=== PATIENT | female | born 1960 | race Caucasian/White ===

== ENCOUNTER 2018-10-25 00:15 | Outpatient (CLI) | payer BC, SELFPAY ==
[2018-10-25 11:38] LABS: ALT 31 U/L (12-78); AST 14 U/L (15-37); Albumin 3.6 g/dL (3.4-5.0); Alkaline Phosphatase 101 U/L (46-116); Anion Gap 9.8 mmol/L (3-11); BUN 16 mg/dL (7-18); Bilirubin, Total 0.4 mg/dL (0.2-1.0); CO2 30.2 mmol/L (21.0-32.0); CREATININE 0.71 mg/dL (0.55-1.02); Calcium 9.8 mg/dL (8.5-10.1); Chloride 103 mmol/L (98-107); Cholesterol 216 mg/dL (50-200); Glucose 110 mg/dL (70-100); HDL Cholesterol 50 mg/dL (40-60); LDL CHOLESTEROL 136 mg/dL (<100); Potassium 4.3 mmol/L (3.5-5.1); Sodium 143 mmol/L (136-145); TSH 0.04 uIU/mL (0.358-3.74); Total Protein 7.4 g/dL (6.4-8.2); Triglyceride 119 mg/dL (30-150)
== END 2018-10-25 00:35 ==
PROVIDERS: PCP Family Medicine; Visit Provider Family Medicine
DX: Z00.00 Encounter for general adult medical examination without abnormal findings (principal); E78.5 Hyperlipidemia, unspecified; I10 Essential (primary) hypertension; E89.0 Postprocedural hypothyroidism; R73.03 Prediabetes; Z83.3 Family history of diabetes mellitus
CPT/HCPCS: 36415; 80053; 80061; 83721; 83036; 84443

== ENCOUNTER 2018-12-31 09:05 | Outpatient (CLI) | payer BC, SELFPAY ==
[2018-12-31 10:27] LABS: Abs Immature Grans 0.02 k/cumm (0.0-0.09); Absolute Basophil Count 0.02 k/cumm (0.0-0.2); Absolute Eosinophil Count 0.23 k/cumm (0.0-0.7); Absolute Lymphocyte Count 1.56 k/cumm (1.2-3.4); Absolute Monocyte Count 0.64 k/cumm (0.11-0.7); Basophils % 0.2; Eosinophils % 2.9; HCT 37.1 % (36.0-46.0); HGB 12.5 g/dL (12.0-15.5); Immature Grans % 0.2; Lymphocytes % 19.3; Mean Corp. HGB Concentration 33.7 g/dL (32.0-36.0); Mean Corpuscular Hemoglobin 29.2 pg (27.0-33.0); Mean Corpuscular Volume 86.7 fL (80-95); Mean Platelet Volume 9.5 fL (8.0-11.0); Monocytes % 7.9; Neutrophils % 69.5; Platelet Count 391 x1000/uL (130-400); RBC 4.28 m/cumm (4.00-5.20); RBC Distribution Width 12.4 % (11.7-14.6); White Blood Cell Count 8.07 k/cumm (4.4-10.8)
[2018-12-31 11:04] LABS: ALT 52 U/L (12-78); FREE T4 1.57 ng/dL (0.76-1.46); TSH (W/Ref FT4) 0.03 uIU/mL (0.358-3.74)
== END 2018-12-31 09:25 ==
PROVIDERS: PCP Family Medicine; Visit Provider Family Medicine
DX: C73 Malignant neoplasm of thyroid gland (principal); R59.0 Localized enlarged lymph nodes; E78.5 Hyperlipidemia, unspecified
CPT/HCPCS: 36415; 84439; 84443; 84460; 85025

== ENCOUNTER 2019-10-05 01:41 | Outpatient (CLI) | payer BC, SELFPAY ==
[2019-10-05 15:14] LABS: BUN 15 mg/dL (7-18); CREATININE 0.74 mg/dL (0.55-1.02)
--- NOTE | 2019-10-05 15:42 | DI.CT_ITS ---
EXAM: CT NECK W CLINICAL HISTORY: MASS LT SIDE OF NECK,R22.1. ECHNIQUE: Imaging Protocol: Axial computed tomography images with coronal and sagittal reformatted i mages were created and reviewed CONTRAST MATERIAL: Intravenous: Omnipaque 350 Contrast volume:100 mL contrast route:IV - Oral: No COMPARISON: No exams were available for comparison FINDINGS: Parotids/submandibular: Normal. Lymphadenopathy: There is scattered lymph nodes seen along the level one to level three all measurin g less than 8 mm in short axis diameter which are physiologic in nature. There are 2 enlarged lymph n odes seen in the left neck. They are interposed between the sternocleidomastoid muscle and the jugul ar vein and lie inferior to the level of the parotid gland. The larger measures 2.4 x 1.6 centimeter s. The smaller measures 1.2 x 2.1 centimeters. Carotids/Jugular: Within normal limits. Soft tissues: The floor the mouth is unremarkable. The epiglottis and vocal cords are within normal limits. Tiny calcifications are seen in the tonsillar tissue bilaterally. No mass is appreciated. Incidental note is made of an aberrant right subclavian artery and an azygos lobe. These are normal variants. There are mild degenerative changes seen in the spine. IMPRESSION: Enlarged lymph nodes in the left neck just below the level of the parotid gland. No evidence of a soft tissue mass or enhancing lesion. DATA REPOSITORY: All CT scans at this facility are submitted to the National Radiology Data Registry (NRDR) Dose Index Registry (DIR) with the [employer] (ACR). RADIATION OPTIMIZATION: All CT scans at this facility use at least one of these dose optimization te chniques: automated exposure control; mA and/or kV adjustment per patient size (includes targeted exa ms where dose is matched to clinical indication); or iterative reconstruction.
[2019-10-05] MEDS: Omnipaque 350 MG/ML 100 ML BTL IJ (15:43)
== END 2019-10-05 02:01 ==
PROVIDERS: PCP Family Medicine; Visit Provider Otolaryngology
DX: R22.1 Localized swelling, mass and lump, neck (principal); R59.0 Localized enlarged lymph nodes; Z85.850 Personal history of malignant neoplasm of thyroid
CPT/HCPCS: 70491; 84520; 82565; J3490

== ENCOUNTER 2019-10-16 00:48 | Outpatient (CLI) | payer BC, SELFPAY ==
--- NOTE | 2019-10-16 07:39 | DI.US_ITS ---
EXAM: US NEEDLE LOCAL OTHER WO RAD CLINICAL HISTORY: LYMPHADENOPATHY,R59.1, ULTRASOUND GUIDED FINE NEEDLE ASPIRATION TECHNIQUE: Ultrasound performed using standard protocol. COMPARISON: SOFT TISSUE HEAD NECK from 01/30/2011 FINDINGS: Ultrasound guidance was provided for left cervical mass biopsy performed by Dr. Tolentino. Please see Melany Tolentino's procedure note.
--- NOTE | 2019-10-16 08:00 | PAPNONF_PTH ---
PATIENT: Celina Szymanski LOC: [facility] U#:[id number] AGE/SX: 59/F ROOM: RE10/16/[address]: Ghanshyam Tolentino MD : 1960 BED: DIS: 10/16/2019 SPEC #: [id number] RECD: 10/16/19 13:03 STATUS: HARMAN RELala #: [id number] PRUDENCIO: 10/16/19 08:[address]: Ghanshyam Tolentino DEPT: [facility] Cytology RECD BY: Azalea Tim ENTERED: 10/16/19 13:09 SP TYPE: PAPMARELYF DIEGO DR: Samuel Newton MD Tissues: 1 - BODY FLUID CYTO-FINE NEEDLE [facility] Procedures: BODY FLUID CYTO-FINE NEEDLE [facility] Comments: [id number]
== END 2019-10-16 01:08 ==
PROVIDERS: PCP Family Medicine; Visit Provider Otolaryngology
DX: C77.0 Secondary and unspecified malignant neoplasm of lymph nodes of head, face and neck (principal); Z85.850 Personal history of malignant neoplasm of thyroid; R59.0 Localized enlarged lymph nodes; Z87.891 Personal history of nicotine dependence
CPT/HCPCS: 10005; 76942; 88104

== ENCOUNTER 2020-01-11 02:59 | Outpatient (CLI) | payer BC, SELFPAY ==
[2020-01-13 09:22] LABS: Thyroglobulin Antibody 18 U/mL (<=60)
== END 2020-01-11 03:19 ==
PROVIDERS: PCP Family Medicine; Visit Provider Surgery
DX: C73 Malignant neoplasm of thyroid gland (principal)
CPT/HCPCS: 36415; 86800

== ENCOUNTER 2020-02-17 02:27 | Outpatient (CLI) | payer BC, SELFPAY ==
[2020-02-17 10:21] LABS: Abs Immature Grans 0.01 k/cumm (0.0-0.09); Absolute Basophil Count 0.03 k/cumm (0.0-0.2); Absolute Eosinophil Count 0.25 k/cumm (0.0-0.7); Absolute Lymphocyte Count 1.39 k/cumm (1.2-3.4); Absolute Neutrophil Count 4.57 k/cumm (1.2-6.7); Basophils % 0.4; Eosinophils % 3.7; HCT 38.4 % (36.0-46.0); HGB 12.9 g/dL (12.0-15.5); Immature Grans % 0.1 %; Lymphocytes % 20.6; Mean Corp. HGB Concentration 33.6 g/dL (32.0-36.0); Mean Corpuscular Volume 86.3 fL (80-95); Mean Platelet Volume 9.4 fL (8.0-11.0); Monocytes % 7.4; Neutrophils % 67.8; Platelet Count 417 x1000/uL (130-400); RBC 4.45 m/cumm (4.00-5.20); RBC Distribution Width 12.8 % (11.7-14.6); White Blood Cell Count 6.75 k/cumm (4.4-10.8)
[2020-02-17 11:11] LABS: TSH 0.06 uIU/mL (0.36-3.74)
== END 2020-02-17 02:47 ==
PROVIDERS: PCP Family Medicine; Visit Provider Preventive Medicine Undersea and Hyperbaric Medicine
DX: C73 Malignant neoplasm of thyroid gland (principal)
CPT/HCPCS: 36415; 84443; 85025

== ENCOUNTER 2020-04-26 01:36 | Outpatient (CLI) | payer BC, SELFPAY ==
[2020-04-26 09:29] LABS: TSH 0.03 uIU/mL (0.36-3.74)
== END 2020-04-26 01:56 ==
PROVIDERS: PCP Family Medicine; Visit Provider Preventive Medicine Undersea and Hyperbaric Medicine
DX: C73 Malignant neoplasm of thyroid gland (principal)
CPT/HCPCS: 36415; 84443; 86800

== ENCOUNTER 2020-06-03 03:51 | Outpatient (CLI) | payer BC, SELFPAY ==
[2020-06-04 14:33] LABS: Thyroglobulin Antibody <1.8 IU/mL (<1.8)
== END 2020-06-03 04:11 ==
PROVIDERS: PCP Family Medicine; Visit Provider Preventive Medicine Undersea and Hyperbaric Medicine
DX: C73 Malignant neoplasm of thyroid gland (principal)
CPT/HCPCS: 36415; 84432; 86800

== ENCOUNTER 2020-11-24 04:06 | Outpatient (CLI) | payer BC, SELFPAY ==
[2020-11-24 08:12] LABS: TSH 0.15 uIU/mL (0.36-3.74)
[2020-11-25 14:21] LABS: Thyroglobulin Antibody <1.8 IU/mL (<1.8); Thyroglobulin Tumor Marker 2.5 ng/mL
== END 2020-11-24 04:07 | disposition home or self-care (01) ==
LOC: LBO 04:06
PROVIDERS: PCP Family Medicine; Visit Provider Preventive Medicine Undersea and Hyperbaric Medicine
DX: C73 Malignant neoplasm of thyroid gland (principal)
CPT/HCPCS: 36415; 84432; 84443; 86800

== ENCOUNTER 2020-12-26 09:28 | Outpatient (CLI) | payer BC, SELFPAY ==
[2020-12-27 16:16] LABS: COVID-19 RT-PCR UVMMC Result Negative (Negative)
== END 2020-12-26 09:29 | disposition home or self-care (01) ==
PROVIDERS: PCP Family Medicine; Visit Provider Family Medicine
DX: Z20.822 Contact with and (suspected) exposure to COVID-19 (principal)
CPT/HCPCS: U0003

== ENCOUNTER 2021-04-06 03:38 | Outpatient (CLI) | payer BC, SELFPAY ==
[2021-04-06 09:34] LABS: TSH 0.18 uIU/mL (0.36-3.74)
[2021-04-07 16:46] LABS: Thyroglobulin Antibody <1.8 IU/mL (<1.8); Thyroglobulin Tumor Marker 2.8 ng/mL
== END 2021-04-06 03:39 | disposition home or self-care (01) ==
PROVIDERS: PCP Family Medicine; Visit Provider Preventive Medicine Undersea and Hyperbaric Medicine
DX: C73 Malignant neoplasm of thyroid gland (principal)
CPT/HCPCS: 36415; 84432; 84443; 86800

== ENCOUNTER 2021-12-13 12:54 | Outpatient (RCR) | payer BC, SELFPAY ==
[2021-12-13 13:45] LABS: TSH 0.01 uIU/mL (0.36-3.74)
[2021-12-13 23:08] LABS: Thyroglobulin Antibody <15 U/mL (<=60)
== END 2021-12-21 23:59 | disposition home or self-care (01) ==
LOC: INF 12:54
PROVIDERS: PCP Family Medicine; Visit Provider Preventive Medicine Undersea and Hyperbaric Medicine
DX: C73 Malignant neoplasm of thyroid gland (principal)
CPT/HCPCS: 84443; 86800

== ENCOUNTER 2022-01-24 07:10 | Outpatient (CLI) | payer BC, SELFPAY ==
[2022-01-24 08:23] LABS: TSH 0.01 uIU/mL (0.36-3.74)
[2022-01-25 17:10] LABS: Thyroglobulin Antibody <1.8 IU/mL (<1.8); Thyroglobulin Tumor Marker 3.1 ng/mL
== END 2022-01-24 07:11 | disposition home or self-care (01) ==
PROVIDERS: PCP Family Medicine; Visit Provider Preventive Medicine Undersea and Hyperbaric Medicine
DX: C73 Malignant neoplasm of thyroid gland (principal)
CPT/HCPCS: 36415; 84432; 84443; 86800

== ENCOUNTER 2023-01-30 02:21 | Outpatient (CLI) | payer OTHER, SELFPAY ==
[2023-01-30 08:05] LABS: Hemoglobin A1C 5.8 % (<5.7)
[2023-01-30 08:22] LABS: ALT 27 U/L (14-59); AST 11 U/L (15-37); Alkaline Phosphatase 103 U/L (46-116); Anion Gap 7.5 mmol/L (3-11); BUN 20 mg/dL (7-18); Bilirubin, Total 0.3 mg/dL (0.2-1.0); CO2 29.5 mmol/L (21.0-32.0); CREATININE 0.8 mg/dL (0.55-1.02); Calcium 9.5 mg/dL (8.5-10.1); Calculated LDL 174 mg/dL (<100); Chloride 103 mmol/L (98-107); Cholesterol 239 mg/dL (<200); Estimated GFR 82.74 (mL/min/1.73m2); Glucose 135 mg/dL (74-106); HDL Cholesterol 40 mg/dL (40-60); Sodium 140 mmol/L (136-145); Total Protein 7.6 g/dL (6.4-8.2); Triglyceride 127 mg/dL (<150)
== END 2023-01-30 02:22 | disposition home or self-care (01) ==
LOC: LBO 02:21
PROVIDERS: PCP Family Medicine; Visit Provider Family Medicine
DX: Z00.00 Encounter for general adult medical examination without abnormal findings (principal); I10 Essential (primary) hypertension; E78.5 Hyperlipidemia, unspecified; R73.03 Prediabetes
CPT/HCPCS: 36415; 80053; 80061; 83036

== ENCOUNTER 2023-03-18 09:39 | Outpatient (CLI) | payer OTHER, SELFPAY ==
--- NOTE | 2023-03-18 09:00 | DI.RAD_ITS ---
Exam(s) XR KNEE RT 3V AP,LAT,SHANE EXAM: XR KNEE RT 3V AP,LAT,SHANE CLINICAL HISTORY: right knee pain. TECHNIQUE: 2D digital imaging was performed of the right knee. Three views obtained. AP, lateral an d PA tunnel views were obtained. COMPARISON: No exams were available for comparison FINDINGS: BONES: No acute fracture is present. No bony destructive lesion is seen. Enthesophytes are seen at th e anterior patella. JOINTS: The knee is normally aligned. No joint effusion is seen. SOFT TISSUE: Atherosclerosis. IMPRESSION: No acute abnormality. DATA REPOSITORY: RADIATION DOSE DELIVERED:
== END 2023-03-18 09:40 | disposition home or self-care (01) ==
LOC: DIORS 09:39
PROVIDERS: PCP Family Medicine; Referring Provider Family Medicine; Visit Provider Student in an Organized Health Care Education/Training Program
DX: M25.561 Pain in right knee (principal)
CPT/HCPCS: 73562

== ENCOUNTER → 2023-06-07 00:53 | Outpatient (CLI) | payer OTHER, SELFPAY ==
[2023-06-07 15:09] LABS: Abs Immature Grans 0.02 10^3/uL (0.0-0.06); Absolute Basophil Count 0.07 10^3/uL (0.0-0.2); Absolute Eosinophil Count 0.33 10^3/uL (0.0-0.7); Absolute Lymphocyte Count 1.49 10^3/uL (1.2-3.4); Absolute Monocyte Count 0.49 10^3/uL (0.1-0.8); Absolute Neutrophil Count 4.66 10^3/uL (1.2-6.7); Eosinophils % 4.7; HCT 39.7 % (36.0-46.0); HGB 13.1 g/dL (11.2-15.7); Immature Grans % 0.3; Lymphocytes % 21.1; MCH 27.8 pg (27.0-33.0); MCV 84 fL (80-95); MPV 8.8 fL (8.0-11.0); Monocytes % 6.9; Platelet Count 411 10^3/uL (130-400); RBC 4.72 10^6/uL (3.93-5.22); RDW 12.9 % (11.7-14.6); RDW-SD 39.5 fL; WBC 7.06 10^3/uL (4.4-10.8)
[2023-06-07 15:10] LABS: ESR 35 mm/hr (0-30)
[2023-06-07 15:20] LABS: CREATININE 0.7 mg/dL (0.55-1.02); Estimated GFR 97.12 (mL/min/1.73m2)
--- NOTE | 2023-06-07 16:25 | DI.CT_ITS ---
Exam(s) CT BRAIN NECK CTA EXAM: CT BRAIN NECK CTA CLINICAL HISTORY: CAMPOS/lt neck pain, nodules, hx thyroid CA x3,m54.2. TECHNIQUE: Imaging Protocol: Axial CT angiography was performed with multi-slice acquisition and mu lti-planar and 3D reconstructions. CONTRAST MATERIAL: Intravenous: Omnipaque 350 Contrast volume:structured data in ml COMPARISON: CT CT NECK W from 10/05/2019 US US NEEDLE LOCAL OTHER WO RAD from 10/16/2019 FINDINGS: CT Head W/O and W contrast: Ventricles and Extra axial spaces: Normal in size and morphology for the patient's age. Hemorrhage: None. Cerebral parenchyma: Normal. Midline shift: None. Brainstem/Cerebellum: Normal. Calvarium: Normal. Visualized Paranasal sinuses/Mastoids: Clear. Soft Tissues: Unremarkable. Enhancement: Normal. CTA Brain W: Internal Carotid Arteries: Petrous: Normal. Cavernous: Normal. Cerebral: Normal. Middle Cerebral Arteries: Right: No aneurysm, occlusion or significant stenosis. Left: No aneurysm, occlusion or significant stenosis. Anterior Cerebral Arteries: Right: No aneurysm, occlusion or significant stenosis. Left: No aneurysm, occlusion or significant stenosis. Posterior cerebral Arteries: Right: No aneurysm, occlusion or significant stenosis. Left: No aneurysm, occlusion or significant stenosis. Vertebral Arteries: Right: No aneurysm, occlusion or significant stenosis. Left: No aneurysm, occlusion or significant stenosis. Basilar Artery: No aneurysm, occlusion or significant stenosis. CTA Neck W: Common Carotid: Right: No dissection, occlusion or significant stenosis. Left: No dissection, occlusion or significant stenosis. External Carotid: Right: No dissection, occlusion or significant stenosis. Left: No dissection, occlusion or significant stenosis. Internal Carotid: Right: No dissection, occlusion or significant stenosis. Left: No dissection, occlusion or significant stenosis. Vertebral Artery: Right: No dissection, occlusion or significant stenosis. Left: No dissection, occlusion or significant stenosis. Lung Apices: Normal. Azygos lobe, normal variant. Aberrant right subclavian vein, normal variant. A scending aorta measures 4.4 cm AP. Atherosclerotic changes. Bones: Lucency seen in the C5 vertebral body. Not present on prior. Degenerative changes at C1-2 an d C5-6 and C6-7. Facet degenerative changes throughout. Soft Tissues: Tonsillar calcifications again noted. Thyroid appears to have been resected. Two adjacent lymph nodes measuring 15 millimeters located behind the right submandibular gland. Othe r smaller nodes seen inferiorly. Area of ill-defined soft tissue fullness lateral to the left tonsil, between the tonsil and vessels. It measures approximately 1.8 x 2.4 cm by 2.8 cm this may represent a mass arising from the left ton erum. It shows mild minimal enhancement. Evaluation of enhancement is limited since the exam was per formed during the arterial phase and venous structures are not yet opacified. IMPRESSION: 1. Normal CTA examination of the [place]. 2. Unremarkable CT Head. 3. Neck CT: Dilated ascending aorta to 4.4 cm. No significant vascular abnormality. Abnormal hearing lucency in the C5 vertebral body not present on prior exam. 2.8 cm mass seen within or adjacent to the left tonsil. Mildly enlarged large right anterior chain lymph nodes. Unexpected findings RADIATION DOSE DELIVERED: 2,333.22mGy.cm Total DLP DATA REPOSITORY: All CT scans at this facility are submitted to the National Radiology Data Registry (NRDR) Dose Index Registry (DIR) with the [employer] (ACR). RADIATION OPTIMIZATION: All CT scans at this facility use at least one of these dose optimization te chniques: automated exposure control; mA and/or kV adjustment per patient size (includes targeted exa ms where dose is matched to clinical indication); or iterative reconstruction.
[2023-06-07] MEDS: Normal Saline - Diluent 50 ML VIAL IJ (16:27)
[2023-06-07] MEDS: Omnipaque 350 MG/ML 100 ML BTL 85 ML IJ (16:28)
== END ==
PROVIDERS: PCP Family Medicine; Visit Provider Physician Assistant
DX: M54.2 Cervicalgia (principal); I10 Essential (primary) hypertension
CPT/HCPCS: 70496; 70498; 85652; 82565; 85025; J3490

== ENCOUNTER 2023-08-09 03:20 | Outpatient (CLI) | payer OTHER, SELFPAY ==
[2023-08-09 17:33] LABS: ALT 29 U/L (14-59); AST 14 U/L (15-37); Albumin 3.9 g/dL (3.4-5.0); Alkaline Phosphatase 97 U/L (46-116); Anion Gap 10.5 mmol/L (3-11); BUN 22 mg/dL (7-18); Bilirubin, Total 0.4 mg/dL (0.2-1.0); CO2 25.5 mmol/L (21.0-32.0); CREATININE 0.7 mg/dL (0.55-1.02); Calcium 10.5 mg/dL (8.5-10.1); Chloride 102 mmol/L (98-107); Estimated GFR 97.12 (mL/min/1.73m2); Glucose 118 mg/dL (74-106); Potassium 3.5 mmol/L (3.5-5.1); Sodium 138 mmol/L (136-145); TSH 0.44 uIU/mL (0.36-3.74)
[2023-08-12 18:45] LABS: Thyroglobulin Antibody <1.8 IU/mL (<1.8); Thyroglobulin Tumor Marker 18 ng/mL
== END 2023-08-09 03:21 | disposition home or self-care (01) ==
LOC: LBO 03:25
PROVIDERS: Family Medicine; Visit Provider Student in an Organized Health Care Education/Training Program
DX: C73 Malignant neoplasm of thyroid gland
CPT/HCPCS: 36415; 80053; 84432; 84443; 86800

== ENCOUNTER → 2023-10-23 00:34 | Outpatient (CLI) | payer OTHER, SELFPAY ==
[2023-10-23 14:17] LABS: Abs Immature Grans 0.02 10^3/uL (0.0-0.06); Absolute Basophil Count 0.07 10^3/uL (0.0-0.2); Absolute Eosinophil Count 0.69 10^3/uL (0.0-0.7); Absolute Lymphocyte Count 1.33 10^3/uL (1.2-3.4); Absolute Neutrophil Count 4.47 10^3/uL (1.2-6.7); Eosinophils % 9.7; HCT 39.4 % (36.0-46.0); HGB 13.4 g/dL (11.2-15.7); Immature Grans % 0.3; Lymphocytes % 18.8; MCH 28.3 pg (27.0-33.0); MCV 83 fL (80-95); MPV 9.2 fL (8.0-11.0); Monocytes % 7.1; Neutrophils % 63.1; Platelet Count 341 10^3/uL (130-400); RBC 4.74 10^6/uL (3.93-5.22); RDW 12.5 % (11.7-14.6); RDW-SD 38.2 fL; WBC 7.08 10^3/uL (4.4-10.8)
[2023-10-23 14:39] LABS: ALT 24 U/L (14-59); AST 10 U/L (15-37); Albumin 3.9 g/dL (3.4-5.0); Alkaline Phosphatase 90 U/L (46-116); Anion Gap 8.2 mmol/L (3-11); BUN 22 mg/dL (7-18); Bilirubin, Total 0.3 mg/dL (0.2-1.0); CO2 27.8 mmol/L (21.0-32.0); CREATININE 0.8 mg/dL (0.55-1.02); Calcium 9.6 mg/dL (8.5-10.1); Chloride 103 mmol/L (98-107); Estimated GFR 82.74 (mL/min/1.73m2); FREE T4 1.73 ng/dL (0.76-1.46); Glucose 116 mg/dL (74-106); Magnesium 2.1 mg/dL (1.8-2.4); Sodium 139 mmol/L (136-145); TSH 0.07 uIU/mL (0.36-3.74); Total Protein 7.7 g/dL (6.4-8.2)
[2023-10-24 21:34] LABS: Thyroglobulin Antibody <1.8 IU/mL (<1.8); Thyroglobulin Tumor Marker 5.1 ng/mL
== END ==
PROVIDERS: PCP Family Medicine; Visit Provider Surgery
DX: C79.9 Secondary malignant neoplasm of unspecified site (principal); C73 Malignant neoplasm of thyroid gland
CPT/HCPCS: 80053; 83735; 84432; 84439; 84443; 85025; 86800

== ENCOUNTER 2023-11-16 10:32 | Emergency (ER) | payer OTHER, SELFPAY ==
[2023-11-16] VITALS (25 sets, daily range): BP systolic 149–207; BP diastolic 84–96; PULSE 84–108; RESP 10–23; TEMP 36.8; O2SAT 88–97
--- NOTE | 2023-11-16 10:45 | DI.RAD_ITS ---
Exam(s) XR CHEST 2V PA LATERAL EXAM: XR CHEST 2V PA LATERAL CLINICAL HISTORY: cough shortness of breath. TECHNIQUE: 2D digital imaging was performed. COMPARISON: No exams were available for comparison FINDINGS: 2 views: Heart size is normal. The mediastinum is not widened. Lungs are clear. No infiltrates nor pleural effusions. IMPRESSION: No acute pulmonary findings. DATA REPOSITORY: RADIATION DOSE DELIVERED:
--- NOTE | 2023-11-16 10:47 | ED.GENADUL_ITS ---
Discharge Plan Disposition Patient Disposition: Home Discharge Details Clinical Impression: Nausea & vomiting Primary Care Provider: Apple Hameed ED Provider: Brennan Prado Home Meds and New Rx's Prescriptions: New ondansetron 4 mg tablet,disintegrating 4 mg PO BID 5 Days Qty: 10 0RF Continued levothyroxine 150 mcg tablet 150 mcg PO DAILY Patient Comments: TAKE 1 TABLET BY MOUTH ONCE DAILY IN ADDITION TO 200MCG FOR A TOTAL OF 350MCG Rx Instructions: total daily dose 350mcg levothyroxine 200 mcg tablet 200 mcg PO DAILY Rx Instructions: total daily dose of 350mcg losartan 50 mg tablet 50 mg PO DAILY Qty: 90 1RF diazepam 5 mg tablet 5 mg PO ONCE PRN (Reason: sleep) Qty: 1 0RF Discharge Instructions Instructions: Acute Nausea and Vomiting (ED) Additional Instructions: You were seen in the emergency department for your nausea and vomiting. Your blood work showed that you are mildly dehydrated. You are receiving a prescription for nausea medicines which you should take as directed. Please return to the emergency department as we discussed if you develop any fevers any abdominal pain or cannot eat or drink as result of nausea or vomiting. Otherwise please follow-up with your primary care provider next week. HPI General Date/Time Provider Initiated Documentation: 11/16/23 10:47 . HPI Narrative: MDM This is an overall very well-appearing normothermic and not tachycardic but dehydrated appearing 63-year-old female with 2 days of nausea vomiting in the setting of radiation in the setting of thyroid cancer for which she will receive labs and IV fluids. Patient reports vomiting up her antihypertensive medications last night. She is on losartan 50 mg daily. No pain out of proportion to suggest necrotizing soft tissue infection. Patient has a soft nontender abdomen so I am not concerned for acute intra-abdominal infection. Specifically no right lower quadrant tenderness to suggest appendicitis. No left lower quadrant tenderness nor diarrhea to suggest diverticulitis. Patient has not been on chemotherapy and has not had any fevers so I am not concerned for neutropenic fever. Patient has not had any surgeries to her abdomen and had a bowel movement this morning so not concern for small bowel obstruction. No chest pain to suggest esophageal rupture. In the absence of chest pain my suspicion was low for ACS however based on patient's sex. 11:30 PM Basic metabolic panel showing mild anion gap acidosis. No KIMBERLY. Mild hyperglycemia but normal bicarbonate??not consistent with DKA. Mildly elevated calcium at 10.2 which will improve with fluids. Normal reassuring magnesium. CBC with no anemia nor leukocytosis. Mild thrombocytosis slightly more pronounced compared to prior. Negative initial troponin. Given time since symptoms began several days ago no indication for repeat troponin. 1:45 PM Patient tolerated p.o. challenge well in the ED. We discussed return to the ED for any fevers abdominal pain or any recurrent inability to tolerate p.o. I sent her with a short course of ondansetron. I advised PCP follow-up as needed. Chronic conditions affecting the care of the patient: N/A History obtained from an outside historian: N/A External record review: [facility] [place] Diagnostic interpretations performed by me: Per my independent interpretation chest x-ray shows: No acute cardiopulmonary process Per my independent interpretation EKG shows: Narrow complex normal sinus rhythm at a rate of 92.Intervals within normal limits. Left axis. No signs of LVH. T wave flattening in aVL. No prior for comparison. No acute injury pattern. ]Medications: Ondansetron Social determinants of health affecting disposition: N/A Management discussed with: N/A Treatment/interventions considered: Hospitalization but deferred given improved symptoms Response to therapies provided: Improved symptoms in the ED HPI This is a 63-year-old female with multiple recurrent papillary thyroid cancer status post resection and currently undergoing radiation treatment at [facility]. She arrives with her via private vehicle. She reportedly has been nauseous and vomiting for the past 2 days. She has not been able to keep anything down. She denies any abdominal pain or chest pain. She has never had any surgeries to her abdomen. Her last bowel movement was this morning. She has had no rash to her abdomen. She denies fevers chills chest pain shortness of breath. No acute tobacco, ethanol, and illicits. No recent falls. Exam General: Well-appearing in no acute distress speaking in complete sentences. Head: Normocephalic, atraumatic. Eye: Extraocular eye movements intact. No conjunctival injection. No scleral icterus. Ear, nose, mouth, throat: Dry mucous membranes. Normal voice, handling secretions normally. Neck: Trachea midline. Cardiovascular: Well-perfused distal extremities. Regular rate and rhythm Respiratory: Nonlabored respiration. Bilateral clear lungs Gastrointestinal: Nondistended abdomen. Soft nontender. No rebound. No guarding. Musculoskeletal: No edema. Moving all 4 extremities spontaneously. Skin: Normal for age and race, grossly normal temperature and turgor. No acute rash. Neurologic: Alert and appropriate, no apparent acute deficits. Psychiatric: Mood and manner are appropriate. Grooming and personal hygiene are appropriate. Related Data Home Medications Medication Instructions Recorded Confirmed levothyroxine 150 mcg tablet 150 mcg PO DAILY 08/03/22 11/16/23 levothyroxine 200 mcg tablet 200 mcg PO DAILY 08/03/22 11/16/23 losartan 50 mg tablet 50 mg PO DAILY #90 tabs 08/16/23 11/16/23 diazepam 5 mg tablet 5 mg PO ONCE PRN sleep #1 tab 10/10/23 11/16/23 ondansetron 4 mg disintegrating 4 mg PO BID 5 days #10 tabs 11/16/23 tablet Previous Rx's Medication Instructions Recorded losartan 50 mg tablet 50 mg PO DAILY #90 tabs 08/16/23 diazepam 5 mg tablet 5 mg PO ONCE PRN sleep #1 tab 10/10/23 ondansetron 4 mg disintegrating 4 mg PO BID 5 days #10 tabs 11/16/23 tablet Allergies Allergy/AdvReac Type Severity Reaction Status Date / Time No Known Allergies Allergy Verified 09/05/23 09:19 General Stated Complaint: Nausea/Vomit/Diar RAY: 3 Course Vital Signs Vital signs: Vital Signs Temperature 36.8 C 11/16/23 10:40 Pulse 97 H 11/16/23 10:40 Respiratory Rate 16 11/16/23 10:40 Blood Pressure 149/90 H 11/16/23 10:40 Pulse Oximetry 93 11/16/23 10:40 Temperature 36.8 C 11/16/23 10:40 Temperature Source Tympanic 11/16/23 10:40 Pulse 97 H 11/16/23 10:40 Respiratory Rate 16 11/16/23 10:40 Blood Pressure 149/90 H 11/16/23 10:40 Blood Pressure Position Sitting 11/16/23 10:40 Pulse Oximetry 93 11/16/23 10:40 Oxygen Delivery Method Room Air 11/16/23 10:40 Oxygen Flow Rate 0 11/16/23 10:40 Medical Decision Making Quality:SDOH Health Related Social Needs: No Data to Display PFSH All Active Problems (Updated 11/16/23 @ 13:45 by Brennan Prado MD) Nausea & vomiting (Acute) Hypercalcemia (Acute) Lymphadenopathy of left cervical region (Acute) Internal derangement of right knee (Acute) Hyperlipidemia (Chronic) Hypertension (Chronic) Hypothyroidism associated with surgical procedure (Acute 03/28/18) Obesity (Chronic) Prediabetes (Chronic 03/28/18) History of malignant neoplasm of thyroid (Acute 05/30/16) Followed by endocrinology 04/05; papillary thyroid cancer. Hypoalbuminemia (Acute) Medical History History of tobacco use History of thyroid cancer followed by endocrinology 04/05 Family history of diabetes mellitus (03/28/18) Family history of coronary artery disease (04/14/18) sister with MT at age 48 and mother with CAD at age 65 Surgical History H/O neck dissection S/P total thyroidectomy (~1994) Family History Mother , AGE 73 Diabetes Depression Heart disease Stroke Sister Substance abuse Diabetes Essential hypertension Depression Heart disease Brother Diabetes Essential hypertension Depression Sister Substance abuse Diabetes Depression Asthma Alcohol abuse Brother Substance abuse Diabetes Depression Colon cancer Heart disease CABG age 66 Maternal Grandmother Diabetes Stroke 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[employer] [place] Pets and animals: Yes Pets and animals: cat(s) Sexually active: Yes Do you think of yourself as: lesbian/ontiveros/homosexual Current gender identity: female What is your relationship status?: Panel score (0-1 are the most socially isolated patients): 1 Frequency: does not exercise Alena/Synagogue: No preference Special alena needs: No Seatbelt use: always Working smoke detector in home: Yes Carbon monox detector in home: Yes Firearms in home: Yes Firearms unloaded and locked: Yes Do you feel safe at home: Yes Victim of physical abuse: No Victim of emotional abuse: No Victim of sexual abuse: No Additional Social history: Strongly enjoys her work, grandchildren.
--- NOTE | 2023-11-16 11:00 | RT.EKG_ITS ---
APPROVED REPORT Exam: Resting ECG Reason for Exam: Nausea vomiting Patient Location: E HR:92 bpm ECG Measurements Heart Rate 92 AXIS NE 186 P -12 QRSd 98 QRS -30 QT 398 T 44 QTc 494 Conclusion Sinus rhythm...normal P axis, V-rate 60- 99 Left axis deviation...QRS axis (-30,-90) Narrow complex normal sinus rhythm at a rate of 92.Intervals within normal limits. Left axis. No si gns of LVH. T wave flattening in aVL. No prior for comparison. No acute injury pattern.
[2023-11-16 11:10] LABS: Abs Immature Grans 0.03 10^3/uL (0.0-0.06); Absolute Basophil Count 0.05 10^3/uL (0.0-0.2); Absolute Eosinophil Count 0.07 10^3/uL (0.0-0.7); Absolute Lymphocyte Count 0.74 10^3/uL (1.2-3.4); Absolute Monocyte Count 0.37 10^3/uL (0.1-0.8); Absolute Neutrophil Count 7.58 10^3/uL (1.2-6.7); Basophils % 0.6; Eosinophils % 0.8; HCT 42.4 % (36.0-46.0); HGB 14.3 g/dL (11.2-15.7); Immature Grans % 0.3; Lymphocytes % 8.4; MCH 27.7 pg (27.0-33.0); MCHC 33.7 % (32.0-36.0); MCV 82 fL (80-95); MPV 9.1 fL (8.0-11.0); Monocytes % 4.2; Neutrophils % 85.7; Platelet Count 438 10^3/uL (130-400); RBC 5.16 10^6/uL (3.93-5.22); RDW-SD 38.7 fL; WBC 8.84 10^3/uL (4.4-10.8)
[2023-11-16] MEDS: Ondansetron 4 MG/2 ML VIAL IVP (11:10)
[2023-11-16] MEDS: Normal Saline 1,000 ML 1000 ML IV (11:13)
[2023-11-16 11:28] LABS: Anion Gap 12.2 mmol/L (3-11); BUN 13 mg/dL (7-18); CO2 27.8 mmol/L (21.0-32.0); CREATININE 0.8 mg/dL (0.55-1.02); Calcium 10.2 mg/dL (8.5-10.1); Chloride 97 mmol/L (98-107); Estimated GFR 82.74 (mL/min/1.73m2); Glucose 168 mg/dL (74-106); Magnesium 1.9 mg/dL (1.8-2.4); Potassium 3.5 mmol/L (3.5-5.1); Sodium 137 mmol/L (136-145); Troponin I < 50 ng/L (< or =60)
--- NOTE | 2023-11-16 11:43 | DI.VRAD_ITS ---
PROCEDURE INFORMATION: Exam: XR Chest Exam date and time: 11/16/2023 11:23 AM Age: 63 years old Clinical indication: Cough and shortness of breath TECHNIQUE: Imaging protocol: Radiologic exam of the chest. Views: 2 views. COMPARISON: CT BRAIN NECK CTA 06/07/2023 3:56 PM FINDINGS: Tubes, catheters and devices: There are electrocardiographic leads on the thorax. Lungs: Unremarkable. No consolidation. Pleural spaces: Unremarkable. No pleural effusion. No pneumothorax. Heart/Mediastinum: The heart and aorta are normal in size and configuration. Bones/joints: Unremarkable. IMPRESSION: No acute cardiopulmonary disease. Dictated and Authenticated by: Nickolas Arboleda MD. Ordering:JAMES Tristan MD
[2023-11-16] MEDS: Metoclopramide 10 MG/2 ML VIAL IVP (12:14)
[2023-11-16] MEDS: Droperidol 5 MG/2 ML VIAL 1.25 MG IVP (13:00)
[2023-11-16] MEDS: Ondansetron O.D.T. 4 MG TABEF, 3 TABS/BTL PO (13:59)
== END 2023-11-16 16:26 | disposition home or self-care (01) ==
PROVIDERS: Emergency Provider Emergency Medicine; PCP Family Medicine
DX: R11.2 Nausea with vomiting, unspecified (principal); R73.9 Hyperglycemia, unspecified; D75.839 Thrombocytosis, unspecified; C73 Malignant neoplasm of thyroid gland
CPT/HCPCS: 80048; 93005; 96361; 96365; 96375; 99284; 71046; 83735; 84484; 85025; 93010; J1790; J2405; J2765

== ENCOUNTER 2023-11-29 14:39 | Emergency (ER) | payer OTHER, SELFPAY ==
[2023-11-29] VITALS (39 sets, daily range): BP systolic 76–154; BP diastolic 33–103; PULSE 77–140; RESP 16–20; TEMP 36.3–36.6; O2SAT 93–100
--- NOTE | 2023-11-29 14:45 | RT.EKG_ITS ---
APPROVED REPORT Exam: Resting ECG Reason for Exam: dizzy, tachy Patient Location: E HR:105 bpm ECG Measurements Heart Rate 105 AXIS NV 156 P 54 QRSd 91 QRS -24 QT 345 T 69 QTc 456 Conclusion Sinus tachycardia...rate> 99 Physician: no stemi
--- NOTE | 2023-11-29 14:58 | W.ED.GENAD ---
Discharge Plan Disposition Patient Disposition: Home Condition: Stable Discharge Details Clinical Impression: GI bleed, Anemia Primary Care Provider: Apple Hameed ED Provider: Kaelyn Rhodes Home Meds and New Rx's Prescriptions: No Action levothyroxine 150 mcg tablet 150 mcg PO DAILY Patient Comments: TAKE 1 TABLET BY MOUTH ONCE DAILY IN ADDITION TO 200MCG FOR A TOTAL OF 350MCG Rx Instructions: total daily dose 350mcg levothyroxine 200 mcg tablet 200 mcg PO DAILY Rx Instructions: total daily dose of 350mcg losartan 50 mg tablet 50 mg PO DAILY Qty: 90 1RF hydromorphone 1 mg/mL liquid 1 mg PO Q4H PRN Discharge Instructions Instructions: Anemia (ED) Additional Instructions: Please stop taking the aspirin. Follwo up with general surgery to discuss a colonoscopy. Please return to the ER for any recurrence of bleeding, dark stools, abdominal pain, or dizziness or lightheadedness. Follow up with primary care provider in 3-5 days. Return to ED sooner if any worsening or concerns. Increase oral fluids. He did receive 1 unit of red blood cells today. You may continue to take your previously prescribed pain medication however do not take aspirin. Referrals: Apple Hameed MD [Primary Care Provider] - 3 days HPI <Kaelyn Rhodes NP - Last Filed: 11/29/23 20:21> General Date/Time Provider Initiated Documentation: 11/29/23 14:45. Related Data Home Medications Medication Instructions Recorded Confirmed levothyroxine 150 mcg tablet 150 mcg PO DAILY 08/03/22 11/29/23 levothyroxine 200 mcg tablet 200 mcg PO DAILY 08/03/22 11/29/23 losartan 50 mg tablet 50 mg PO DAILY #90 tabs 08/16/23 11/29/23 hydromorphone 1 mg/mL oral liquid 1 mg PO Q4H PRN 11/29/23 11/29/23 Previous Rx's Medication Instructions Recorded losartan 50 mg tablet 50 mg PO DAILY #90 tabs 08/16/23 Allergies Allergy/AdvReac Type Severity Reaction Status Date / Time No Known Allergies Allergy Verified 11/29/23 14:52 <ARELIS Shaikh - Last Filed: 11/29/23 16:49> General Limitations to Documentation: no limitations. Information obtained by: patient, family (), RN/MD (contacted by [facility]) and RN notes reviewed. History of Present Illness 63 year old F presents to the emergency department with the chief complaint of thick, sludgy, dark stool starting today, lightheaded, hypotensive, described as moderate, Quality is described as other (lightheaded), Patient started experiencing this day(s) (started feeling unwell last night) and it has been constant. No relieving factors improve symptom(s), No exacerbating factors reported . Patient notes loss of appetite, malaise and weakness (feels generally weak and fatigued); denies confusion, chest pain, diaphoresis, fever/chills, headaches, nausea/vomiting (has had N/V associated with radiation, none at this time) and syncope. Patient did receive the following treatments prior to arrival, none General Stated Complaint: GI Bleed RAY: 3 Review of Systems <ARELIS Shaikh - Last Filed: 11/29/23 16:49> Constitutional Constitutional: Reports as per HPI, Denies chills, Reports fatigue, Denies fever(s), Denies headache(s), Reports lethargy and Reports malaise ENT Ears, Nose, Mouth, and Throat: Denies headache(s) Cardiovascular Cardiovascular: Reports as per HPI, Denies chest pain, Reports lightheadedness and Denies dyspnea Respiratory Respiratory: Reports as per HPI, Denies cough and Denies dyspnea Gastrointestinal Gastrointestinal: Reports as per HPI Musculoskeletal Musculoskeletal: Reports as per HPI and Denies back pain Integumentary/Breasts Skin/Breast: Reports as per HPI and Denies rash Neurologic Neurologic: Reports as per HPI and Denies headache(s) Endocrine Endocrine: Reports fatigue Exam <ARELIS Shaikh - Last Filed: 11/29/23 16:49> Const General: cooperative, comfortable, no acute distress, well developed and ill appearing chronically Nutritional Appearance: well nourished and overweight Orientation: alert and awake [facility] Head: normal to inspection Mouth: moist mucous membranes Eyes Conjunctivae: conjunctival abnormality bilaterally pallor Neck Other: well healed surgical incision along the left side Resp Effort & Inspection: normal respiratory effort, able to speak in complete sentences and no respiratory distress Auscultation: clear to auscultation bilaterally, no rales, no rhonchi and no wheezes Cardio Rate: tachycardic Rhythm: regular rhythm Heart Sounds: S1 normal and S2 normal GI Inspection: normal to inspection Palpation: soft, no hepatosplenomegaly, not firm, no guarding, not rigid and nontender Percussion: normal to percussion Back/Spine/Pelvis Back: no CVA tenderness Skin General skin exam: no rashes or lesions noted Trauma: no lacerations or abrasions Neuro General: patient alert and patient awake Cognition: normal cognition Speech: speech normal Gait: normal gait Extrem General: normal to inspection, capillary refill normal, no pedal edema, no calf tenderness and other (2+ distal pulses) Course <ARELIS Shaikh - Last Filed: 11/29/23 16:49> Vital Signs Vital signs: Vital Signs Temperature 36.4 C 11/29/23 14:43 Pulse 113 H 11/29/23 14:43 Respiratory Rate 20 11/29/23 14:43 Blood Pressure 101/53 L 11/29/23 14:43 Pulse Oximetry 99 11/29/23 14:43 Temperature 36.4 C 11/29/23 14:43 Temperature Source Oral 11/29/23 14:43 Pulse 113 H 11/29/23 14:43 Respiratory Rate 20 11/29/23 14:43 Blood Pressure 101/53 L 11/29/23 14:43 Blood Pressure Position Sitting 11/29/23 14:43 Pulse Oximetry 99 11/29/23 14:43 Oxygen Delivery Method Room Air 11/29/23 14:43 Oxygen Flow Rate 0 11/29/23 14:43 Pain Level 3 11/29/23 14:43 Medical Decision Making <Kaelyn Rhodes NP - Last Filed: 11/29/23 20:21> Patient is a pleasant 63-year-old female, accompenid by , with past medical history significant for thyroid cancer with thyroidectomy and recently finishing radiation, Presenting today with chief complaint of feeling lightheaded, generalized weak, fatigued and concerns for GI bleed. Patient was seen by oncology prior to arrival. There is concern for hypotension, tachycardia. Patient reports that starting last night she has been feeling unwell and has had multiple bowel movements that have been soft, dark and sludgy. No history of GI bleed. She is never had a colonoscopy. She denies any abdominal pain. No fevers or chills. No previous abdominal surgeries. She denies any shortness of breath or chest pain. No change in urinary habits. Denies any bright red blood per rectum. She is not anticoagulated. . On exam, patient appears chronically ill. She appears fatigued and pale. She is ambulatory to the bathroom, was able to provide a stool sample. Lungs are clear, she is tachycardic but otherwise cardiac exam is normal. Abdominal exam is benign with no tenderness on palpation. She does have a well-healed incision from previous excision of her thyroid cancer. Concern for GI bleed. Unclear at this time as patient will require transfusion. She is not actively hemorrhaging and is hemodynamically stable with a blood pressure of 101/53 at this time. She was reported to have been more hypotensive at oncology. Will give a small amount of fluids as her p.o. intake has been overall improving but still diminished from her recent cancer treatments. Concerned with potential dilution though would like to check H&H prior to large amount of fluid. At the end of my shift, care transition to [facility] with labs pending. Of note, patient also began new pain medication today, began Dilaudid. She was concerned that this may be associated with the GI bleed symptoms. However, sinus less likely. More likely to be coincidental. She transition to Dilaudid from morphine. SJ: Care assumed from provider (Milka INFANTE) Please see their initial HPI, PE, and documentation. Discussed patient details and case and pending workup and disposition. Patient is hemodynamically stable, and alert and oriented. At time of sign out awaiting labs and further care. CBC shows white blood cell count of 13.53 hemoglobin 8.9 and 26.6 platelets are 446 BUN is 50, creatinine 1.0 glucose 168, H&H is dropped from 224 from 14.3 and 42.4. Will consider giving 1 unit of PRBCs. Discussed blood transfusion with patient who verbalizes understanding and is in agreement with plan, consented for 1 unit. BP is 100 systolic, she alert and oriented, c/o fatigue. Blood is infusing without difficulty, patient is insistent on being discharged home. Patient discharged home with family in hemodynamically stable condition. This text was generated using USDSation system, please disregard any oddities of phrase or misspellings. Lab Data Lab results reviewed: Yes I reviewed the patient's lab results. Labs: Laboratory Tests Range/Units 11/29/23 15:05 WBC (4.4-10.8) 10^3/uL 13.53 H RBC (3.93-5.22) 10^6/uL 3.11 L Hgb (11.2-15.7) g/dL 8.9 L Hct (36.0-46.0) % 26.6 L MCV (80-95) fL 86 MCH (27.0-33.0) pg 28.6 MCHC (32.0-36.0) % 33.5 RDW (11.7-14.6) % 13.7 Plt Count (130-400) 10^3/uL 446 H MPV (8.0-11.0) fL 9.7 Immature Gran % 0.4 Neutrophils % 80.4 Lymphocytes % 8.6 Monocytes % 5.8 Eosinophils % 4.1 Basophils % 0.7 Nucleated RBC % (0.0-0.3) % 0.0 Absolute Neutrophils (1.2-6.7) 10^3/uL 10.88 H Absolute Lymphocytes (1.2-3.4) 10^3/uL 1.16 L Absolute Monocytes (0.1-0.8) 10^3/uL 0.78 Absolute Eosinophils (0.0-0.7) 10^3/uL 0.55 Absolute Basophils (0.0-0.2) 10^3/uL 0.09 RBC Morphology See Below Anisocytosis 1+ PT (9.1-11.1) sec 10.3 INR (0.9-1.1) 1.0 Sodium (136-145) mmol/L 140 Potassium (3.5-5.1) mmol/L 4.0 Chloride (98-107) mmol/L 103 Carbon Dioxide (21.0-32.0) mmol/L 22.9 Anion Gap (3-11) mmol/L 14.1 H BUN (7-18) mg/dL 50 H Creatinine (0.55-1.02) mg/dL 1.0 Est GFR (CKD-EPI 2020) (mL/min/1.73m2) 63.30 Glucose (74-106) mg/dL 168 H Calcium (8.5-10.1) mg/dL 9.5 Magnesium (1.8-2.4) mg/dL 2.0 Total Bilirubin (0.2-1.0) mg/dL 0.1 L AST (15-37) U/L 7 L ALT (14-59) U/L 19 Alkaline Phosphatase (46-116) U/L 67 Troponin I (< or =60) ng/L < 50 Total Protein (6.4-8.2) g/dL 6.0 L Albumin (3.4-5.0) g/dL 3.0 L Quality:[facility] Health Related Social Needs: No Data to Display <ARELIS Shaikh - Last Filed: 11/29/23 16:49> Patient is a pleasant 63-year-old female, accompenid by , with past medical history significant for thyroid cancer with thyroidectomy and recently finishing radiation, Presenting today with chief complaint of feeling lightheaded, generalized weak, fatigued and concerns for GI bleed. Patient was seen by oncology prior to arrival. There is concern for hypotension, tachycardia. Patient reports that starting last night she has been feeling unwell and has had multiple bowel movements that have been soft, dark and sludgy. No history of GI bleed. She is never had a colonoscopy. She denies any abdominal pain. No fevers or chills. No previous abdominal surgeries. She denies any shortness of breath or chest pain. No change in urinary habits. Denies any bright red blood per rectum. She is not anticoagulated. . On exam, patient appears chronically ill. She appears fatigued and pale. She is ambulatory to the bathroom, was able to provide a stool sample. Lungs are clear, she is tachycardic but otherwise cardiac exam is normal. Abdominal exam is benign with no tenderness on palpation. She does have a well-healed incision from previous excision of her thyroid cancer. Concern for GI bleed. Unclear at this time as patient will require transfusion. She is not actively hemorrhaging and is hemodynamically stable with a blood pressure of 101/53 at this time. She was reported to have been more hypotensive at oncology. Will give a small amount of fluids as her p.o. intake has been overall improving but still diminished from her recent cancer treatments. Concerned with potential dilution though would like to check H&H prior to large amount of fluid. At the end of my shift, care transition to [facility] with labs pending. Of note, patient also began new pain medication today, began Dilaudid. She was concerned that this may be associated with the GI bleed symptoms. However, sinus less likely. More likely to be coincidental. She transition to Dilaudid from morphine. SJ: Care assumed from provider (Milka INFANTE) Please see their initial HPI, PE, and documentation. Discussed patient details and case and pending workup and disposition. Patient is hemodynamically stable, and alert and oriented. At time of sign out awaiting labs and further care. CBC shows white blood cell count of 13.53 hemoglobin 8.9 and 26.6 platelets are 446 BUN is 50, creatinine 1.0 glucose 168, H&H is dropped from 224 from 14.3 and 42.4. Will consider giving 1 unit of PRBCs. Discussed blood transfusion with patient who verbalizes understanding and is in agreement with plan, consented for 1 unit. BP is 100 systolic, she alert and oriented, c/o fatigue. PFSH <Kaelyn Rhodes NP - Last Filed: 11/29/23 20:21> All Active Problems (Updated 11/29/23 @ 19:10 by Kaelyn Rhodes NP) Anemia (Chronic) GI bleed (Chronic) Nausea & vomiting (Acute) Hypercalcemia (Acute) Lymphadenopathy of left cervical region (Acute) Internal derangement of right knee (Acute) Hyperlipidemia (Chronic) Hypertension (Chronic) Hypothyroidism associated with surgical procedure (Acute 03/28/18) Obesity (Chronic) Prediabetes (Chronic 03/28/18) History of malignant neoplasm of thyroid (Acute 05/30/16) Followed by endocrinology 04/05; papillary thyroid cancer. Hypoalbuminemia (Acute) Medical History History of tobacco use History of thyroid cancer followed by endocrinology 04/05 Family history of diabetes mellitus (03/28/18) Family history of coronary artery disease (04/14/18) sister with MS at age 48 and mother with CAD at age 65 Surgical History H/O neck dissection S/P total thyroidectomy (~1994) Family History Mother , AGE 73 Diabetes Depression Heart disease Stroke Sister Substance abuse Diabetes Essential hypertension Depression Heart disease Brother Diabetes Essential hypertension Depression Sister Substance abuse Diabetes Depression Asthma Alcohol abuse Brother Substance abuse Diabetes Depression Colon cancer Heart disease CABG age 66 Maternal Grandmother Diabetes Stroke 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[employer] Pets and animals: Yes Pets and animals: cat(s) Sexually active: Yes Do you think of yourself as: lesbian/ontiveros/homosexual Current gender identity: female What is your relationship status?: Panel score (0-1 are the most socially isolated patients): 1 Frequency: does not exercise Alena/Jew: No preference Special alena needs: No Seatbelt use: always Working smoke detector in home: Yes Carbon monox detector in home: Yes Firearms in home: Yes Firearms unloaded and locked: Yes Do you feel safe at home: Yes Victim of physical abuse: No Victim of emotional abuse: No Victim of sexual abuse: No Additional Social history: Strongly enjoys her work, grandchildren. Sign Out <Kaelyn Rhodes NP - Last Filed: 11/29/23 20:21> Sign Out Data: Sign Out Comment: Care transitioned to Kaelyn Rhodes NP. Concern for GI bleed. Currently hemodynamically stable. Concern for potential need for blood transfusion, colonoscopy. Patient may require admission. Last updated by Milka Redd PA at 11/29/23 15:34
[2023-11-29 15:17] LABS: Abs Immature Grans 0.06 10^3/uL (0.0-0.06); Absolute Basophil Count 0.09 10^3/uL (0.0-0.2); Absolute Lymphocyte Count 1.16 10^3/uL (1.2-3.4); Absolute Monocyte Count 0.78 10^3/uL (0.1-0.8); Absolute Neutrophil Count 10.88 10^3/uL (1.2-6.7); Basophils % 0.7; Eosinophils % 4.1; HCT 26.6 % (36.0-46.0); HGB 8.9 g/dL (11.2-15.7); Immature Grans % 0.4; Lymphocytes % 8.6; MCH 28.6 pg (27.0-33.0); MCHC 33.5 % (32.0-36.0); MCV 86 fL (80-95); MPV 9.7 fL (8.0-11.0); Monocytes % 5.8; Neutrophils % 80.4; Platelet Count 446 10^3/uL (130-400); RBC 3.11 10^6/uL (3.93-5.22); RDW 13.7 % (11.7-14.6); RDW-SD 42.8 fL; WBC 13.53 10^3/uL (4.4-10.8)
[2023-11-29 15:20] LABS: Absolute Eosinophil Count 0.55 10^3/uL (0.0-0.7)
[2023-11-29 15:28] LABS: Prothrombin Time 10.3 sec (9.1-11.1)
[2023-11-29] MEDS: Lactated Ringers 1,000 ML 500 ML IV (15:30)
[2023-11-29 15:36] LABS: ALT 19 U/L (14-59); AST 7 U/L (15-37); Alkaline Phosphatase 67 U/L (46-116); Anion Gap 14.1 mmol/L (3-11); BUN 50 mg/dL (7-18); Bilirubin, Total 0.1 mg/dL (0.2-1.0); CO2 22.9 mmol/L (21.0-32.0); Calcium 9.5 mg/dL (8.5-10.1); Chloride 103 mmol/L (98-107); Glucose 168 mg/dL (74-106); Sodium 140 mmol/L (136-145); Troponin I < 50 ng/L (< or =60)
[2023-11-29 15:38] LABS: Diff Comment Diff Reviewed
[2023-11-29 15:39] LABS: Anisocytosis 1+
== END 2023-11-29 19:16 | disposition home or self-care (01) ==
PROVIDERS: Physician Assistant; Emergency Provider Registered Nurse Emergency; PCP Family Medicine
DX: K92.2 Gastrointestinal hemorrhage, unspecified (principal); D64.9 Anemia, unspecified; C73 Malignant neoplasm of thyroid gland; E89.0 Postprocedural hypothyroidism; Z92.3 Personal history of irradiation
CPT/HCPCS: 36430; 80053; 86850; 86900; 86901; 86920; 93005; 96360; 96361; 99284; 83735; 84484; 85025; 85610; 93010; P9016

== ENCOUNTER 2023-12-09 14:20 | Outpatient (REF) | payer OTHER, SELFPAY ==
[2023-12-09 15:18] LABS: Abs Immature Grans 0.06 10^3/uL (0.0-0.06); Absolute Basophil Count 0.04 10^3/uL (0.0-0.2); Absolute Eosinophil Count 0.09 10^3/uL (0.0-0.7); Absolute Lymphocyte Count 0.33 10^3/uL (1.2-3.4); Absolute Monocyte Count 0.21 10^3/uL (0.1-0.8); Absolute Neutrophil Count 11.11 10^3/uL (1.2-6.7); Basophils % 0.3; Eosinophils % 0.8; HCT 31.4 % (36.0-46.0); HGB 10.2 g/dL (11.2-15.7); Immature Grans % 0.5; Lymphocytes % 2.8; MCH 29.3 pg (27.0-33.0); MCHC 32.5 % (32.0-36.0); MCV 90 fL (80-95); MPV 8.9 fL (8.0-11.0); Monocytes % 1.8; Neutrophils % 93.8; Platelet Count 527 10^3/uL (130-400); RBC 3.48 10^6/uL (3.93-5.22); RDW 14.5 % (11.7-14.6); RDW-SD 47.3 fL; WBC 11.84 10^3/uL (4.4-10.8)
[2023-12-09 15:29] LABS: ALT 19 U/L (14-59); AST 9 U/L (15-37); Albumin 3.1 g/dL (3.4-5.0); Alkaline Phosphatase 82 U/L (46-116); Anion Gap 9.2 mmol/L (3-11); BUN 13 mg/dL (7-18); Bilirubin, Total 0.3 mg/dL (0.2-1.0); CO2 27.8 mmol/L (21.0-32.0); CREATININE 0.7 mg/dL (0.55-1.02); Calcium 8.8 mg/dL (8.5-10.1); Chloride 103 mmol/L (98-107); Estimated GFR 97.12 (mL/min/1.73m2); Glucose 135 mg/dL (74-106); Potassium 3.9 mmol/L (3.5-5.1); Sodium 140 mmol/L (136-145); Total Protein 5.9 g/dL (6.4-8.2)
== END 2023-12-09 14:21 | disposition home or self-care (01) ==
LOC: LBN 14:20
PROVIDERS: PCP Family Medicine; Visit Provider Nurse Practitioner Family
DX: C73 Malignant neoplasm of thyroid gland (principal)
CPT/HCPCS: 80053; 85025

== ENCOUNTER 2023-12-20 16:36 | Outpatient (CLI) | payer OTHER, SELFPAY ==
[2023-12-20 16:07] LABS: Abs Immature Grans 0.03 10^3/uL (0.0-0.06); Absolute Basophil Count 0.03 10^3/uL (0.0-0.2); Absolute Eosinophil Count 0.56 10^3/uL (0.0-0.7); Absolute Monocyte Count 0.46 10^3/uL (0.1-0.8); Basophils % 0.4; Eosinophils % 8.4; HCT 30.8 % (36.0-46.0); HGB 9.7 g/dL (11.2-15.7); Immature Grans % 0.4; Lymphocytes % 10.5; MCH 28.2 pg (27.0-33.0); MCHC 31.5 % (32.0-36.0); MCV 90 fL (80-95); Monocytes % 6.9; Neutrophils % 73.4; Platelet Count 333 10^3/uL (130-400); RBC 3.44 10^6/uL (3.93-5.22); RDW-SD 45.4 fL; WBC 6.68 10^3/uL (4.4-10.8)
[2023-12-20 16:54] LABS: ALT 19 U/L (14-59); AST 6 U/L (15-37); Albumin 3.3 g/dL (3.4-5.0); Alkaline Phosphatase 88 U/L (46-116); Anion Gap 6.2 mmol/L (3-11); BUN 20 mg/dL (7-18); Bilirubin, Total 0.3 mg/dL (0.2-1.0); CO2 29.8 mmol/L (21.0-32.0); CREATININE 0.6 mg/dL (0.55-1.02); Calcium 9.2 mg/dL (8.5-10.1); Chloride 103 mmol/L (98-107); FREE T4 1.73 ng/dL (0.76-1.46); Glucose 109 mg/dL (74-106); Potassium 3.7 mmol/L (3.5-5.1); Sodium 139 mmol/L (136-145); TSH 0.21 uIU/Ml (0.36-3.74); Total Protein 6.9 g/dL (6.4-8.2)
== END 2023-12-20 16:37 | disposition home or self-care (01) ==
LOC: LBO 16:40
PROVIDERS: PCP Family Medicine; Visit Provider Nurse Practitioner Family
DX: C73 Malignant neoplasm of thyroid gland (principal)
CPT/HCPCS: 36415; 80053; 84439; 84443; 85025

== ENCOUNTER 2024-02-03 09:09 | Outpatient (RCR) | payer OTHER, SELFPAY ==
[2024-02-03 09:31] LABS: Abs Immature Grans 0.02 10^3/uL (0.0-0.06); Absolute Basophil Count 0.04 10^3/uL (0.0-0.2); Absolute Eosinophil Count 0.12 10^3/uL (0.0-0.7); Absolute Lymphocyte Count 1.05 10^3/uL (1.2-3.4); Absolute Monocyte Count 0.34 10^3/uL (0.1-0.8); Absolute Neutrophil Count 6.43 10^3/uL (1.2-6.7); Basophils % 0.5 %; Eosinophils % 1.5 %; HCT 36.8 % (36.0-46.0); HGB 11.7 g/dL (11.2-15.7); Immature Grans % 0.3 %; Lymphocytes % 13.1 %; MCH 26.7 pg (27.0-33.0); MCHC 31.8 % (32.0-36.0); MCV 84 fL (80-95); MPV 9.4 fL (8.0-11.0); Monocytes % 4.3 %; Neutrophils % 80.3 %; Platelet Count 464 10^3/uL (130-400); RBC 4.38 10^6/uL (3.93-5.22); RDW 13.2 % (11.7-14.6); RDW-SD 40.5 fL
[2024-02-03 09:43] LABS: Magnesium 1.9 mg/dL (1.8-2.4)
[2024-02-03 09:47] LABS: ALT 17 U/L (14-59); AST 6 U/L (15-37); Albumin 3.4 g/dL (3.4-5.0); Alkaline Phosphatase 82 U/L (46-116); Anion Gap 9.6 mmol/L (3-11); BUN 23 mg/dL (7-18); Bilirubin, Total 0.2 mg/dL (0.2-1.0); CO2 28.4 mmol/L (21.0-32.0); CREATININE 0.7 mg/dL (0.55-1.02); Calcium 9.7 mg/dL (8.5-10.1); Chloride 105 mmol/L (98-107); Estimated GFR 96.52 (mL/min/1.73m2); Glucose 163 mg/dL (74-106); Sodium 143 mmol/L (136-145); Total Protein 7.1 g/dL (6.4-8.2)
[2024-02-03 10:11] LABS: Vitamin D 25 Total 14.6 ng/mL (30-100)
[2024-02-03 18:31] LABS: Parathyroid Hormone,Intact 58 pg/mL (19-88)
== END 2024-02-21 23:59 | disposition home or self-care (01) ==
LOC: INF 09:09
PROVIDERS: Internal Medicine Medical Oncology; Nurse Practitioner Family; PCP Family Medicine; Visit Provider Internal Medicine Hematology & Oncology
DX: C79.51 Secondary malignant neoplasm of bone (principal); C78.01 Secondary malignant neoplasm of right lung; C78.02 Secondary malignant neoplasm of left lung; C73 Malignant neoplasm of thyroid gland
CPT/HCPCS: 36415; 80053; 82306; 83735; 83970; 85025

== ENCOUNTER 2024-02-24 15:25 | Outpatient (CLI) | payer OTHER, SELFPAY ==
[2024-02-24 15:23] LABS: Abs Immature Grans 0.01 10^3/uL (0.0-0.06); Absolute Basophil Count 0.01 10^3/uL (0.0-0.2); Absolute Eosinophil Count 0.08 10^3/uL (0.0-0.7); Absolute Lymphocyte Count 0.98 10^3/uL (1.2-3.4); Absolute Monocyte Count 0.25 10^3/uL (0.1-0.8); Basophils % 0.2 %; Eosinophils % 1.3 %; HCT 35.9 % (36.0-46.0); HGB 11.6 g/dL (11.2-15.7); Immature Grans % 0.2 %; Lymphocytes % 15.7 %; MCHC 32.3 % (32.0-36.0); MCV 84 fL (80-95); MPV 9.4 fL (8.0-11.0); Neutrophils % 78.6 %; Platelet Count 290 10^3/uL (130-400); RBC 4.29 10^6/uL (3.93-5.22); RDW 13.9 % (11.7-14.6); RDW-SD 42.4 fL; WBC 6.23 10^3/uL (4.4-10.8)
[2024-02-24 15:44] LABS: Hemoglobin A1C 6.6 % (<5.7)
[2024-02-24 16:40] LABS: ALT 20 U/L (14-59); AST 11 U/L (15-37); Albumin 3.1 g/dL (3.4-5.0); Alkaline Phosphatase 103 U/L (46-116); Anion Gap 7.5 mmol/L (3-11); BUN 17 mg/dL (7-18); Bilirubin, Total 0.2 mg/dL (0.2-1.0); CO2 29.5 mmol/L (21.0-32.0); CREATININE 0.7 mg/dL (0.55-1.02); Calcium 9.7 mg/dL (8.5-10.1); Chloride 103 mmol/L (98-107); Estimated GFR 96.52 (mL/min/1.73m2); FREE T4 1.55 ng/dL (0.76-1.46); Glucose 165 mg/dL (74-106); Magnesium 1.8 mg/dL (1.8-2.4); Potassium 3.8 mmol/L (3.5-5.1); Sodium 140 mmol/L (136-145); TSH 0.02 uIU/Ml (0.36-3.74); Total Protein 6.7 g/dL (6.4-8.2)
== END 2024-02-24 15:26 | disposition home or self-care (01) ==
LOC: LBO 02-27 15:26
PROVIDERS: PCP Family Medicine; Visit Provider Internal Medicine Medical Oncology
DX: C79.51 Secondary malignant neoplasm of bone (principal); C78.01 Secondary malignant neoplasm of right lung; C73 Malignant neoplasm of thyroid gland
CPT/HCPCS: 36415; 80053; 83036; 83735; 84439; 84443; 85025

== ENCOUNTER 2024-03-25 10:39 | Outpatient (CLI) | payer OTHER, SELFPAY ==
[2024-03-25 10:41] LABS: Abs Immature Grans 0.02 10^3/uL (0.0-0.06); Absolute Basophil Count 0.02 10^3/uL (0.0-0.2); Absolute Eosinophil Count 0.14 10^3/uL (0.0-0.7); Absolute Lymphocyte Count 0.89 10^3/uL (1.2-3.4); Absolute Monocyte Count 0.32 10^3/uL (0.1-0.8); Absolute Neutrophil Count 5.17 10^3/uL (1.2-6.7); Basophils % 0.3 %; Eosinophils % 2.1 %; HCT 38.9 % (36.0-46.0); HGB 12.5 g/dL (11.2-15.7); Immature Grans % 0.3 %; Lymphocytes % 13.6 %; MCH 26.8 pg (27.0-33.0); MCHC 32.1 % (32.0-36.0); MCV 84 fL (80-95); MPV 9.4 fL (8.0-11.0); Monocytes % 4.9 %; Neutrophils % 78.8 %; Platelet Count 308 10^3/uL (130-400); RBC 4.66 10^6/uL (3.93-5.22); RDW 14.5 % (11.7-14.6); WBC 6.56 10^3/uL (4.4-10.8)
[2024-03-25 11:13] LABS: ALT 21 U/L (14-59); AST 14 U/L (15-37); Albumin 3.2 g/dL (3.4-5.0); Alkaline Phosphatase 112 U/L (46-116); Anion Gap 5.5 mmol/L (3-11); BUN 16 mg/dL (7-18); Bilirubin, Total 0.23 mg/dL (0.2-1.0); CO2 30.5 mmol/L (21.0-32.0); CREATININE 0.7 mg/dL (0.55-1.02); Calcium 9.2 mg/dL (8.5-10.1); Chloride 105 mmol/L (98-107); Estimated GFR 96.52 (mL/min/1.73m2); Glucose 130 mg/dL (74-106); Magnesium 1.8 mg/dL (1.8-2.4); Potassium 4.3 mmol/L (3.5-5.1); Sodium 141 mmol/L (136-145); Total Protein 7.2 g/dL (6.4-8.2)
[2024-03-25 11:40] LABS: Vitamin D 25 Total 26.7 ng/mL (30-100)
== END 2024-03-25 10:40 | disposition home or self-care (01) ==
LOC: LBO 10:39
PROVIDERS: PCP Family Medicine; Visit Provider Internal Medicine Medical Oncology
DX: E83.52 Hypercalcemia (principal); C79.51 Secondary malignant neoplasm of bone; C78.01 Secondary malignant neoplasm of right lung; C78.02 Secondary malignant neoplasm of left lung; C73 Malignant neoplasm of thyroid gland
CPT/HCPCS: 36415; 80053; 82306; 83735; 85025

== ENCOUNTER 2024-05-11 01:55 | Outpatient (CLI) | payer OTHER, SELFPAY ==
--- NOTE | 2024-05-11 | DI.CT_ITS ---
Exam(s) CT NECK CHEST W EXAM: CT NECK CHEST W CLINICAL HISTORY: C73,C78.01,C78.02, Thyroid CA, 2ndary ca both lungs TECHNIQUE: Imaging Protocol: Axial computed tomography images with coronal and sagittal reformatted images were created and reviewed CONTRAST MATERIAL: Intravenous: Omnipaque 350 Contrast volume:structured data ml Oral: no CT CT NECK CHEST W from 02/24/2024 FINDINGS: Neck: Parotids/submandibular glands: Unremarkable. Thyroid gland: Not seen. Lymphadenopathy: Mildly enlarged right-sided cervical lymph nodes, largest measuring 14 millimeters. Stable from prior. Carotids/Jugular: Within normal limits. Soft tissues: Stable size of left-sided mass in the anterior paraspinal region measuring 2.4 by 1.1 c m. Tonsils appear prominent bilaterally. The floor the mouth is unremarkable. The epiglottis and vo ramiro cords are within normal limits. Bones: No fracture. Stable appearance of abnormal sclerosis in the C5 vertebral body with prominent inferior Schmorl's node. Underlying degenerative changes. Chest: Tracheobronchial tree: Patent where visualized. Mediastinum and Eleanor: 18 millimeter right hilar lymph node noted, not present previously. Pulmonary parenchyma: No consolidation. Increased size of bilateral pulmonary nodules. Previously n oted largest nodule in the left lower lobe made now measures 10 millimeters compared 8 on the prior e xam. 8 millimeter right upper lobe nodule previously measured 5 millimeters. Accessory azygos lob e. Pleura: No effusion or pneumothorax. Heart/Aorta: Ascending aorta measures 4.2 cm. The heart is not dilated. Moderate coronary artery ramiro cifications are seen. Aberrant right subclavian artery. Pulmonary arteries: No evidence of emboli. Bones: No fracture. No lytic or blastic lesions. Degenerative disc changes. Upper abdomen: Liver not well evaluated due to lack of opacification of the hepatic veins. Question of abnormal lucencies in the superior right lobe. IMPRESSION: Neck CT: Stable size left paraspinal neck mass and right-sided adenopathy. Stable prominence of the tonsils. Chest CT: Interval increase in size of bilateral pulmonary nodules. New 18 millimeter right hilar ly mph node. Question of liver metastases. Liver not well opacified with contrast. RADIATION DOSE DELIVERED: Total DLP DATA REPOSITORY: All CT scans at this facility are submitted to the National Radiology Data Registry (NRDR) Dose Index Registry (DIR) with the [employer] (ACR). RADIATION OPTIMIZATION: All CT scans at this facility use at least one of these dose optimization te chniques: automated exposure control; mA and/or kV adjustment per patient size (includes targeted exa ms where dose is matched to clinical indication); or iterative reconstruction.
[2024-05-11 15:25] LABS: ALT 16 U/L (14-59); AST 12 U/L (15-37); Alkaline Phosphatase 114 U/L (46-116); Anion Gap 8.1 mmol/L (3-11); BUN 14 mg/dL (7-18); Bilirubin, Total 0.22 mg/dL (0.2-1.0); CO2 26.9 mmol/L (21.0-32.0); CREATININE 0.7 mg/dL (0.55-1.02); Calcium 9.6 mg/dL (8.5-10.1); Chloride 105 mmol/L (98-107); Estimated GFR 96.52 (mL/min/1.73m2); Glucose 132 mg/dL (74-106); Magnesium 1.7 mg/dL (1.8-2.4); Potassium 3.9 mmol/L (3.5-5.1); Sodium 140 mmol/L (136-145); Total Protein 7.2 g/dL (6.4-8.2)
[2024-05-11] MEDS: Normal Saline - Diluent 50 ML VIAL IJ (15:46)
[2024-05-11] MEDS: Omnipaque 350 MG/ML 100 ML BTL IJ (15:46)
[2024-05-11 21:56] LABS: Abs Immature Grans 0.01 10^3/uL (0.0-0.06); Absolute Basophil Count 0.02 10^3/uL (0.0-0.2); Absolute Eosinophil Count 0.04 10^3/uL (0.0-0.7); Absolute Lymphocyte Count 1.21 10^3/uL (1.2-3.4); Absolute Monocyte Count 0.33 10^3/uL (0.1-0.8); Basophils % 0.4 %; Eosinophils % 0.7 %; HCT 37.9 % (36.0-46.0); Immature Grans % 0.2 %; Lymphocytes % 21.6 %; MCH 27.8 pg (27.0-33.0); MCHC 31.7 % (32.0-36.0); MCV 88 fL (80-95); MPV 10.1 fL (8.0-11.0); Monocytes % 5.9 %; Neutrophils % 71.2 %; Platelet Count 348 10^3/uL (130-400); RBC 4.32 10^6/uL (3.93-5.22); RDW 13.8 % (11.7-14.6); RDW-SD 44.7 fL; WBC 5.61 10^3/uL (4.4-10.8)
[2024-05-13 10:27] LABS: Thyroglobulin Antibody <1.8 IU/mL (<1.8); Thyroglobulin Tumor Marker 79 ng/mL
== END 2024-05-11 02:15 ==
LOC: DI 01:56
PROVIDERS: PCP Family Medicine; Visit Provider Internal Medicine Medical Oncology
DX: C73 Malignant neoplasm of thyroid gland (principal); C78.02 Secondary malignant neoplasm of left lung
CPT/HCPCS: 36415; 70491; 80053; 71260; 83735; 84432; 85025; 86800; J3490

== ENCOUNTER 2024-07-06 03:03 | Outpatient (CLI) | payer OTHER, SELFPAY ==
[2024-07-06 11:28] LABS: Abs Immature Grans 0.03 10^3/uL (0.0-0.06); Absolute Basophil Count 0.02 10^3/uL (0.0-0.2); Absolute Eosinophil Count 0.08 10^3/uL (0.0-0.7); Absolute Lymphocyte Count 0.64 10^3/uL (1.2-3.4); Absolute Monocyte Count 0.26 10^3/uL (0.1-0.8); Absolute Neutrophil Count 4.34 10^3/uL (1.2-6.7); Basophils % 0.4 %; Eosinophils % 1.5 %; HCT 36.9 % (36.0-46.0); HGB 12.2 g/dL (11.2-15.7); Immature Grans % 0.6 %; Lymphocytes % 11.9 %; MCH 28.6 pg (27.0-33.0); MCHC 33.1 % (32.0-36.0); MCV 87 fL (80-95); MPV 8.9 fL (8.0-11.0); Monocytes % 4.8 %; Neutrophils % 80.8 %; Platelet Count 350 10^3/uL (130-400); RBC 4.26 10^6/uL (3.93-5.22); RDW 13.2 % (11.7-14.6); RDW-SD 41.2 fL; WBC 5.37 10^3/uL (4.4-10.8)
[2024-07-06 11:50] LABS: ALT 19 U/L (14-59); AST 20 U/L (15-37); Alkaline Phosphatase 107 U/L (46-116); Anion Gap 6.1 mmol/L (3-11); BUN 16 mg/dL (7-18); Bilirubin, Total 0.28 mg/dL (0.2-1.0); CO2 30.9 mmol/L (21.0-32.0); CREATININE 0.7 mg/dL (0.55-1.02); Calcium 9.4 mg/dL (8.5-10.1); Chloride 106 mmol/L (98-107); Estimated GFR 96.52 (mL/min/1.73m2); Glucose 159 mg/dL (74-106); Sodium 143 mmol/L (136-145); Total Protein 7.3 g/dL (6.4-8.2)
[2024-07-08 20:16] LABS: Thyroglobulin Antibody <1.8 IU/mL (<1.8); Thyroglobulin Tumor Marker 86 ng/mL
== END 2024-07-06 03:04 | disposition home or self-care (01) ==
LOC: LBO 03:03
PROVIDERS: PCP Family Medicine; Visit Provider Internal Medicine Hematology & Oncology
DX: C73 Malignant neoplasm of thyroid gland (principal); C78.01 Secondary malignant neoplasm of right lung; C78.02 Secondary malignant neoplasm of left lung; C79.51 Secondary malignant neoplasm of bone
CPT/HCPCS: 36415; 80053; 83735; 84432; 85025; 86800

== ENCOUNTER 2024-08-24 03:35 | Outpatient (CLI) | payer OTHER, SELFPAY ==
[2024-08-24 13:59] LABS: Abs Immature Grans 0.02 10^3/uL (0.0-0.06); Absolute Basophil Count 0.01 10^3/uL (0.0-0.2); Absolute Lymphocyte Count 0.44 10^3/uL (1.2-3.4); Absolute Monocyte Count 0.14 10^3/uL (0.1-0.8); Basophils % 0.2 %; HCT 39.3 % (36.0-46.0); HGB 12.9 g/dL (11.2-15.7); Immature Grans % 0.3 %; Lymphocytes % 6.7 %; MCH 27.9 pg (27.0-33.0); MCHC 32.8 % (32.0-36.0); MCV 85 fL (80-95); MPV 9.3 fL (8.0-11.0); Monocytes % 2.1 %; Neutrophils % 90.7 %; Platelet Count 316 10^3/uL (130-400); RBC 4.62 10^6/uL (3.93-5.22); RDW-SD 43.1 fL; WBC 6.61 10^3/uL (4.4-10.8)
[2024-08-24 14:18] LABS: Bilirubin Negative (Negative); Blood Negative (Negative); Clarity Clear (Clear); Glucose Negative (Negative); Ketones Trace mg/dL (Negative); Leukocyte Esterase Negative (Negative); Nitrite Negative (Negative); Specific Gravity 1.025 (1.005-1.025); Urobilinogen 0.2 mg/dL (Up to 0.2)
[2024-08-24 14:20] LABS: ALT 19 U/L (14-59); AST 10 U/L (15-37); Albumin 3.3 g/dL (3.4-5.0); Alkaline Phosphatase 84 U/L (46-116); Anion Gap 8.3 mmol/L (3-11); BUN 18 mg/dL (7-18); Bilirubin, Total 0.32 mg/dL (0.2-1.0); CO2 29.7 mmol/L (21.0-32.0); CREATININE 0.9 mg/dL (0.55-1.02); Calcium 9.6 mg/dL (8.5-10.1); Chloride 102 mmol/L (98-107); Estimated GFR 71.39 (mL/min/1.73m2); Glucose 194 mg/dL (74-106); Magnesium 1.9 mg/dL (1.8-2.4); Potassium 3.6 mmol/L (3.5-5.1); Sodium 140 mmol/L (136-145); Total Protein 7.3 g/dL (6.4-8.2)
[2024-08-24 14:33] LABS: Bacteria Rare HPF (Negative); Crystals Mod Calcium Oxalate HPF (Negative); Epithelial Cells Moderate HPF (Negative); Mucus Moderate (Negative); Other Cells Rare Renal (Negative); RBC 0-2 HPF (0-2)
[2024-08-24 14:34] LABS: C & S Indicated? No/Sq. Contamination; Casts 3-5 Hyaline LPF (Negative)
== END 2024-08-24 03:36 | disposition home or self-care (01) ==
LOC: LBO 03:35
PROVIDERS: Internal Medicine Hematology & Oncology; PCP Family Medicine; Visit Provider Internal Medicine Medical Oncology
DX: C79.51 Secondary malignant neoplasm of bone (principal); C78.01 Secondary malignant neoplasm of right lung; C78.02 Secondary malignant neoplasm of left lung; C73 Malignant neoplasm of thyroid gland; Z79.899 Other long term (current) drug therapy
CPT/HCPCS: 80053; 81003; 81015; 83735; 84432; 85025; 86800

== ENCOUNTER 2024-09-07 16:07 | Emergency (ER) | payer OTHER, SELFPAY ==
[2024-09-07 16:15] VITALS: BP 176/97; PULSE 75; RESP 15; TEMP 36.3; O2SAT 97
[2024-09-07 16:18] VITALS: BP 176/97; PULSE 75; RESP 15; TEMP 36.3; O2SAT 97
--- NOTE | 2024-09-07 16:33 | ED.GENADUL_ITS ---
Discharge Plan Disposition Patient Disposition: Against Medical Advice Condition: Stable Discharge Details Clinical Impression: Nausea Primary Care Provider: Apple Hameed ED Provider: Billy Lua Home Meds and New Rx's Prescriptions: Continued lenvatinib 8 mg/day (4 mg x 2) capsule 24 mg PO DAILY fentanyl 25 mcg/hr patch 72 hour 12 mcg transdermal Q72H hydromorphone 2 mg tablet 2 - 6 mg PO .q2-4h MDD 10 PRN (Reason: pain) Qty: 60 0RF gabapentin 300 mg capsule 300 mg PO TID Qty: 90 0RF Rx Instructions: 1 tab in the afternoon, 2 tabs at bedtime ondansetron 4 mg tablet,disintegrating 4 mg PO Q8H Qty: 30 3RF levothyroxine 200 mcg tablet 200 mcg PO DAILY Rx Instructions: total daily dose of 350mcg levothyroxine 150 mcg tablet 175 mcg PO DAILY Patient Comments: TAKE 1 TABLET BY MOUTH ONCE DAILY IN ADDITION TO 200MCG FOR A TOTAL OF 350MCG Rx Instructions: total daily dose 350mcg benzonatate 200 mg capsule 200 mg PO BID PRN (Reason: cough) Qty: 60 3RF Rx Instructions: for cough acetaminophen 500 mg tablet 1,000 mg PO Q6H PRN prochlorperazine maleate [Compazine] 10 mg tablet 10 mg PO Q6H PRN Rx Instructions: for nausea sennosides [senna] 8.8 mg/5 mL syrup 5 ml PO BID PRN (Reason: constipation) Qty: 200 0RF prednisone 10 mg tablet 10 mg PO DAILY Qty: 30 3RF dexamethasone 4 mg tablet See Rx Instructions PO DAILY Qty: 30 0RF Rx Instructions: 8mg orally daily for 5 days then continue 4mg daily fentanyl 50 mcg/hr patch 72 hour 1 patch transdermal Q72H MDD 100mcg Qty: 10 0RF hydromorphone 4 mg tablet 8 - 10 mg PO Q4H MDD 15 tabs PRN (Reason: pain) Qty: 60 0RF Rx Instructions: dose increased losartan 50 mg tablet 50 mg PO DAILY Qty: 90 0RF alprazolam 0.5 mg tablet 0.5 mg PO PRN PRN Patient Comments: TAKE 1 TABLET BY MOUTH NEEDED . TAKE 1 PILL 1/2 HOUR PRIOR TO RADIOTHERAPY NEEDED codeine-guaifenesin 10-100 mg/5 mL liquid 5 ml PO PRN PRN Patient Comments: GIVE 5ML BY MOUTH ONCE DAILY ergocalciferol (vitamin D2) 1,250 mcg (50,000 unit) capsule 5,000 mcg PO .Qweekly Patient Comments: TAKE ONE CAPSULE BY MOUTH ONCE WEEKLY hydrocodone-acetaminophen 5-325 mg tablet 1 tab PO Q6H PRN Patient Comments: TAKE ONE TABLET BY MOUTH EVERY 4 HOURS NEEDED FOR PAIN MAXIMUM DAILY DOSE = 6 TABLETS hydromorphone 1 mg/mL liquid 1 mg PO Q4H PRN Patient Comments: TAKE 1ML BY MOUTH AT BEDTIME NEEDED FOR PAIN +MAX 1ML PER DAY+ ibuprofen [IBU] 600 mg tablet 600 mg PO Q6H Discharge Instructions Instructions: High Potassium Diet, Nausea and Vomiting, Adult ED Additional Instructions: You were seen in the emergency department for your nausea and vomiting, you have mildly low potassium which you can adjust your diet to eat a high potassium diet to fix. You got some relief from ondansetron, Compazine and Benadryl and Valium. I planned to do a CT scan of your abdomen for your epigastric abdominal pain as well as a scan of your head with and without contrast to make sure your nausea and dizziness is not being caused by metastasis to brain. You chose to leave AGAINST MEDICAL ADVICE he states that you do not want to wait for imaging you acknowledge the risks of failure to diagnose potentially fatal or severe pathology and you are of sound mind to do so. Please return to the emergency department for any emergent concern. Referrals: Apple Hameed MD [Primary Care Provider] - HPI General Date/Time Provider Initiated Documentation: 09/07/24 16:32 . HPI Narrative: 64 year-old female presents to ED today by POV/ambulating with her sister with a chief complaint of nausea/vomiting, dizziness, [facility] by [facility] with onset ongoing. Patient has been discontinued off her oral chemotherapy for one week due to the nausea/vomiting for trial of relief- but has not abated. Patient has Stage IV Thyroid CA. Quality described as general vomiting, dizziness, no radiation to chest pain, shortness of breath, fever, productive cough, hemoptysis, hematemesis, melena, hematochezia, diarrhea. Severity is described as moderate to severe for vomiting. Palliating factors include takes ODT Zofran without relief. Provoking factors include nothing specific. Patient not anticoagulated. Related Data Home Medications ?Medication ?Instructions ?Recorded ?Confirmed levothyroxine 200 mcg tablet 200 mcg PO DAILY 08/03/22 09/07/24 acetaminophen 500 mg tablet 1,000 mg PO Q6H PRN 12/06/23 09/07/24 prochlorperazine maleate 10 mg 10 mg PO Q6H PRN 12/06/23 09/07/24 tablet (Compazine) levothyroxine 150 mcg tablet 175 mcg PO DAILY 01/02/24 09/07/24 sennosides 8.8 mg/5 mL oral syrup 5 ml PO BID PRN constipation #200 03/09/24 09/07/24 (senna) mL benzonatate 200 mg capsule 200 mg PO BID PRN cough #60 caps 06/11/24 09/07/24 lenvatinib 8 mg/day (4 mg x 2) 24 mg PO DAILY 08/10/24 09/07/24 capsule prednisone 10 mg tablet 10 mg PO DAILY #30 tabs 08/17/24 09/07/24 fentanyl 25 mcg/hr transdermal 12 mcg transdermal Q72H 08/27/24 09/07/24 patch gabapentin 300 mg capsule 300 mg PO TID #90 caps 08/27/24 09/07/24 hydromorphone 2 mg tablet 2 - 6 mg (1 - 3 x 2 mg) PO .q2-4h 08/27/24 09/07/24 PRN pain #60 tabs ondansetron 4 mg disintegrating 4 mg PO Q8H #30 tabs 08/27/24 09/07/24 tablet dexamethasone 4 mg tablet See Rx Instructions PO DAILY #30 08/31/24 09/07/24 tabs fentanyl 50 mcg/hr transdermal 1 patch transdermal Q72H #10 ea 08/31/24 09/01/24 patch hydromorphone 4 mg tablet 8 - 10 mg (2 - 2.5 x 4 mg) PO Q4H 09/03/24 09/07/24 PRN pain #60 tabs alprazolam 0.5 mg tablet 0.5 mg PO PRN PRN 09/07/24 09/07/24 codeine 10 mg-guaifenesin 100 mg/5 5 ml PO PRN PRN 09/07/24 09/07/24 mL oral liquid ergocalciferol (vitamin D2) 1,250 5,000 mcg PO .Qweekly 09/07/24 09/07/24 mcg (50,000 unit) capsule hydrocodone 5 mg-acetaminophen 325 1 tab PO Q6H PRN 09/07/24 09/07/24 mg tablet hydromorphone 1 mg/mL oral liquid 1 mg PO Q4H PRN 09/07/24 09/07/24 ibuprofen 600 mg tablet (IBU) 600 mg PO Q6H 09/07/24 09/07/24 losartan 50 mg tablet 50 mg PO DAILY #90 tabs 09/07/24 09/07/24 Previous Rx's ?Medication ?Instructions ?Recorded sennosides 8.8 mg/5 mL oral syrup 5 ml PO BID PRN constipation #200 03/09/24 (senna) mL benzonatate 200 mg capsule 200 mg PO BID PRN cough #60 caps 06/11/24 prednisone 10 mg tablet 10 mg PO DAILY #30 tabs 08/17/24 gabapentin 300 mg capsule 300 mg PO TID #90 caps 08/27/24 hydromorphone 2 mg tablet 2 - 6 mg (1 - 3 x 2 mg) PO .q2-4h 08/27/24 PRN pain #60 tabs ondansetron 4 mg disintegrating 4 mg PO Q8H #30 tabs 08/27/24 tablet dexamethasone 4 mg tablet See Rx Instructions PO DAILY #30 08/31/24 tabs fentanyl 50 mcg/hr transdermal 1 patch transdermal Q72H #10 ea 08/31/24 patch hydromorphone 4 mg tablet 8 - 10 mg (2 - 2.5 x 4 mg) PO Q4H 09/03/24 PRN pain #60 tabs losartan 50 mg tablet 50 mg PO DAILY #90 tabs 09/07/24 Allergies Allergy/AdvReac Type Severity Reaction Status Date / Time No Known Allergies Allergy Verified 08/10/24 08:29 General Stated Complaint: Nausea/Vomit/Diar RAY: 3 Review of Systems All systems reviewed & are unremarkable except as noted in HPI and below Exam Narrative Exam Narrative: GENERAL APPEARANCE: Well-nourished, non-toxic, awake and alert, atraumatic, no acute distress. SKIN: Warm, pink, dry, intact, without rashes/lesions/ulcerations. HEAD: Normocephalic, atraumatic, normal hair distribution for gender/age. EYES: Normal conjunctiva, no exudates on lids/lashes. ENT: Nares patent, no circumoral cyanosis, no facial swelling NECK: Supple, trachea midline, painless cervical ROM. LUNGS/CHEST: Lungs CTA bilaterally, non-labored respirations, normal A/P diameter, symmetrical expansion, no chest wall deformity HEART (CV/PV): Regular rate and rhythm without murmur, no peripheral edema, no JVD. ABDOMEN: Soft, non-distended, no guarding, mild epigastric tenderness. MSK: Normal ROM, no swelling/deformity to bilateral UEs or LEs, moving all ex tremities without weakness, no cyanosis, spine midline without tenderness, normal curvature. NEURO: Mental Status AAOx4 - alert to person, place, time, events No facial droop, no forehead involvement. Motor: No focal weakness - strength 5/5 in bilateral UEs and LEs, proximal and distal, symmetric. Sensory: sensation intact to light touch globally. Gait normal: patient ambulated without ataxia into ED room. PSYCH: euthymic, cooperative, pleasant, appropriate speech Course Vital Signs Vital signs: Vital Signs Temperature 36.3 C L 09/07/24 16:15 Pulse 75 09/07/24 16:15 Respiratory Rate 15 09/07/24 16:15 Blood Pressure 176/97 H 09/07/24 16:15 Pulse Oximetry 97 09/07/24 16:15 Temperature 36.3 C L 09/07/24 16:18 Pulse 75 09/07/24 16:18 Respiratory Rate 15 09/07/24 16:18 Blood Pressure 176/97 H 09/07/24 16:18 Blood Pressure Position Sitting 09/07/24 16:18 Pulse Oximetry 97 09/07/24 16:18 Oxygen Delivery Method Room Air 09/07/24 16:18 Oxygen Flow Rate 0 09/07/24 16:18 Medical Decision Making This dictation utilizes [id number] dictation software and may contain unedited grammatical errors. 64 year-old female presents to ED today by POV/ambulating with her sister with a chief complaint of nausea/vomiting, dizziness, sent by [facility] with onset ongoing. Patient has been discontinued off her oral chemotherapy for one week due to the nausea/vomiting for trial of relief- but has not abated. Patient has Stage IV Thyroid CA. Quality described as general vomiting, dizziness, no radiation to chest pain, shortness of breath, fever, productive cough, hemoptysis, hematemesis, melena, hematochezia, diarrhea. Severity is described as moderate to severe for vomiting. Palliating factors include takes ODT Zofran without relief. Provoking factors include nothing specific. Patients' medical history: Stage IV thyroid cancer, dysphagia, palliative care status, hypertension, obesity, prediabetes. Family and social history: Endorses poor oral intake lately, no major exercise regimen, no recent travel or sick contacts. Pertinent exam findings / vital signs include mild epigastric tenderness, benign cardiopulmonary status, nontoxic vitals, neuro intact. Differential / pathologies of concern include pancreatitis, biliary tree patho logy, gastroenteritis, side effects of chemotherapy, mets to brain. Diagnostic studies of: -CBC, CMP, lactate, magnesium, lipase, TSH, UA. -No leukocytosis, mild elevation of absolute neutrophils, no major actionable electrolyte abnormalities, magnesium within normal limits, mildly low potassium counseled on this -Patient left prior to CT head with and without contrast as well as CT abdomen pelvis with contrast AMA Interventions of: -Given IV Zofran, IV fluid 1 L NS, no relief of nausea, added IV Compazine and Benadryl as well as p.o. Valium with relief of nausea. ED Course/Assessment/Plan: 64-year-old female presents with nausea vomiting undergoing oral chemotherapy for stage IV thyroid cancer and palliative care, I did relieve her nausea with several antiemetic agents, I had planned to have a CT head with and without contrast as well as CT abdomen pelvis for mild epigastric pain but the patient left AMA prior to this study being performed, her labs showed no evidence of severe sepsis and she was given IV fluids and had relief of nausea, I did addictions counselor assistant her that we would be not diagnosing possible brain mets or acute abdominal pathology that could be potentially fatal, patient acknowledged these risks and signed out AMA. Findings not consistent with major electrolyte abnormality, sepsis, peritoneal abdomen, neurologic abnormality on exam. Disposition of Nausea. Patient verbalized understanding of the plan and return to ED criteria and engaged in shared decision making. Medical Records Medical records reviewed: Yes I reviewed the patient's medical records. Lab Data Lab results reviewed: Yes I reviewed the patient's lab results. Labs: Laboratory Tests Range/Units 09/07/24 09/07/24 16:55 17:35 WBC (4.4-10.8) 10^3/uL 9.91 RBC (3.93-5.22) 10^6/uL 5.32 H Hgb (11.2-15.7) g/dL 14.8 Hct (36.0-46.0) % 46.0 MCV (80-95) fL 87 MCH (27.0-33.0) pg 27.8 MCHC (32.0-36.0) % 32.2 RDW (11.7-14.6) % 14.1 Plt Count (130-400) 10^3/uL 299 MPV (8.0-11.0) fL 9.6 Immature Gran % % 0.3 Neutrophils % % 82.1 Lymphocytes % % 7.5 Monocytes % % 8.6 Eosinophils % % 1.4 Basophils % % 0.1 Nucleated RBC % (0.0-0.3) % 0.0 Absolute Neutrophils (1.2-6.7) 10^3/uL 8.14 H Absolute Lymphocytes (1.2-3.4) 10^3/uL 0.74 L Absolute Monocytes (0.1-0.8) 10^3/uL 0.85 H Absolute Eosinophils (0.0-0.7) 10^3/uL 0.14 Absolute Basophils (0.0-0.2) 10^3/uL 0.01 VBG Lactate (0.6-1.4) mmol/L 1.9 H Sodium (136-145) mmol/L 136 Potassium (3.5-5.1) mmol/L 3.3 L Chloride (98-107) mmol/L 95 L Carbon Dioxide (21.0-32.0) mmol/L 32.5 H Anion Gap (3-11) mmol/L 8.5 BUN (7-18) mg/dL 16 Creatinine (0.55-1.02) mg/dL 1.0 Est GFR (CKD-EPI 2020) (mL/min/1.73m2) 62.91 Glucose (74-106) mg/dL 126 H Calcium (8.5-10.1) mg/dL 9.6 Magnesium (1.8-2.4) mg/dL 1.9 Total Bilirubin (0.2-1.0) mg/dL 1.16 H AST (15-37) U/L 9 L ALT (14-59) U/L 18 Alkaline Phosphatase (46-116) U/L 80 Total Protein (6.4-8.2) g/dL 7.2 Albumin (3.4-5.0) g/dL 3.7 Lipase (<78) U/L 20 TSH (0.36-3.74) uIU/mL 0.26 L Free T4 (0.76-1.46) ng/dL 2.03 H Urine Color (Yellow) Yellow Urine Clarity (Clear) Clear Urine pH (5-8) 8.5 H Ur Specific [place] (1.005-1.025) 1.020 Urine Protein (Neg-Trace) mg/dL Negative Urine Ketones (Negative) mg/dL 15 H Urine Blood (Negative) Negative Urine Nitrite (Negative) Negative Urine Bilirubin (Negative) Negative Urine Urobilinogen (Up to 0.2) mg/dL 0.2 Ur Leukocyte Esterase (Negative) Negative Urine Glucose (Negative) mg/dL Negative Quality:SDOH Health Related Social Needs: No Data to Display PFSH All Active Problems (Updated 09/07/24 @ 18:47 by ARELIS Santos) Nausea (Acute) Fatigue (Acute) Impaired instrumental activities of daily living (Acute) Dysphagia, pharyngeal (Acute) ACP (advance care planning) (Acute) Dizziness (Acute) Palliative care status (Acute) Hypothyroidism (Chronic) Vitamin D deficiency (Acute) Nausea with vomiting, unspecified (Acute) Neoplasm related pain (Acute) Secondary malignant neoplasm of both lungs (Acute) Thyroid cancer (Acute) Secondary malignant neoplasm of bone (Acute) Hypercalcemia (Acute) Lymphadenopathy of left cervical region (Acute) Internal derangement of right knee (Acute) Hyperlipidemia (Chronic) Hypertension (Chronic) Hypothyroidism associated with surgical procedure (Acute 03/28/18) Obesity (Chronic) Prediabetes (Chronic 03/28/18) History of malignant neoplasm of thyroid (Acute 05/30/16) Followed by endocrinology 04/05; papillary thyroid cancer. Hypoalbuminemia (Acute) Medical History Constipation History of tobacco use History of thyroid cancer followed by endocrinology 04/05 Family history of diabetes mellitus (03/28/18) Family history of coronary artery disease (04/14/18) sister with MA at age 48 and mother with CAD at age 65 Surgical History H/O neck dissection S/P total thyroidectomy (~1994) Family History Mother , AGE 73 Diabetes Depression Heart disease Stroke Dementia Sister Substance abuse Diabetes Essential hypertension Depression Heart disease Brother Diabetes Essential hypertension Depression Sister Substance abuse Diabetes Depression Asthma Alcohol abuse Brother Substance abuse Diabetes Depression Colon cancer Heart disease CABG age 66 Maternal Grandmother Diabetes Stroke Father , truck accident No problems noted. 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 Pets and animals: Yes Pets and animals: cat(s) Sexually active: Yes Do you think of yourself as: lesbian/ontiveros/homosexual Current gender identity: female What is your relationship status?: Panel score (0-1 are the most socially isolated patients): 1 Frequency: does not exercise Alena/Nondenominational: No preference Special alena needs: No Seatbelt use: always Working smoke detector in home: Yes Carbon monox detector in home: Yes Firearms in home: Yes Firearms unloaded and locked: Yes Do you feel safe at home: Yes Victim of physical abuse: No Victim of emotional abuse: No Victim of sexual abuse: No Additional Social history: Strongly enjoys her work, grandchildren.
[2024-09-07 16:59] LABS: Lactate 1.9 mmol/L (0.6-1.4)
[2024-09-07 17:02] LABS: Abs Immature Grans 0.03 10^3/uL (0.0-0.06); Absolute Basophil Count 0.01 10^3/uL (0.0-0.2); Absolute Eosinophil Count 0.14 10^3/uL (0.0-0.7); Absolute Lymphocyte Count 0.74 10^3/uL (1.2-3.4); Absolute Monocyte Count 0.85 10^3/uL (0.1-0.8); Absolute Neutrophil Count 8.14 10^3/uL (1.2-6.7); Basophils % 0.1 %; Eosinophils % 1.4 %; HGB 14.8 g/dL (11.2-15.7); Immature Grans % 0.3 %; Lymphocytes % 7.5 %; MCH 27.8 pg (27.0-33.0); MCHC 32.2 % (32.0-36.0); MCV 87 fL (80-95); MPV 9.6 fL (8.0-11.0); Monocytes % 8.6 %; Neutrophils % 82.1 %; Platelet Count 299 10^3/uL (130-400); RBC 5.32 10^6/uL (3.93-5.22); RDW 14.1 % (11.7-14.6); RDW-SD 44.5 fL; WBC 9.91 10^3/uL (4.4-10.8)
[2024-09-07] MEDS: Ondansetron 4 MG/2 ML VIAL IVP (17:03)
[2024-09-07] MEDS: Normal Saline 1,000 ML 1000 ML IV (17:04)
[2024-09-07 17:26] LABS: ALT 18 U/L (14-59); AST 9 U/L (15-37); Albumin 3.7 g/dL (3.4-5.0); Alkaline Phosphatase 80 U/L (46-116); Anion Gap 8.5 mmol/L (3-11); BUN 16 mg/dL (7-18); Bilirubin, Total 1.16 mg/dL (0.2-1.0); CO2 32.5 mmol/L (21.0-32.0); Chloride 95 mmol/L (98-107); Estimated GFR 62.91 (mL/min/1.73m2); Glucose 126 mg/dL (74-106); Lipase 20 U/L (<78); Magnesium 1.9 mg/dL (1.8-2.4); Potassium 3.3 mmol/L (3.5-5.1); Sodium 136 mmol/L (136-145); TSH (W/Ref FT4) 0.26 uIU/mL (0.36-3.74); Total Protein 7.2 g/dL (6.4-8.2)
[2024-09-07 17:32] LABS: Calcium 9.6 mg/dL (8.5-10.1)
[2024-09-07 17:45] LABS: Bilirubin Negative (Negative); Blood Negative (Negative); Clarity Clear (Clear); Glucose Negative (Negative); Ketones 15 mg/dL (Negative); Leukocyte Esterase Negative (Negative); Nitrite Negative (Negative); Urobilinogen 0.2 mg/dL (Up to 0.2); pH 8.5 (5-8)
[2024-09-07] MEDS: diphenhydrAMINE 50 MG/ML VIAL 25 MG IVP (17:46)
[2024-09-07] MEDS: Prochlorperazine 10 MG/2 ML VIAL 5 MG IVP (17:47)
[2024-09-07] MEDS: Potassium Chloride 20 MEQ TABCR 40 MEQ PO (17:47)
[2024-09-07 17:49] LABS: FREE T4 2.03 ng/dL (0.76-1.46)
[2024-09-07 17:58] VITALS: BP 194/83; PULSE 64; RESP 18; O2SAT 94
[2024-09-07] MEDS: diazePAM 2 MG TAB PO (18:33)
[2024-09-07 19:30] VITALS: BP 164/69; PULSE 75; RESP 20; TEMP 36.8; O2SAT 95
== END 2024-09-07 18:40 | disposition left against medical advice (07) ==
PROVIDERS: Emergency Provider Physician Assistant; PCP Family Medicine
DX: R11.2 Nausea with vomiting, unspecified (principal); E87.6 Hypokalemia; E78.5 Hyperlipidemia, unspecified; I10 Essential (primary) hypertension; E89.0 Postprocedural hypothyroidism; C73 Malignant neoplasm of thyroid gland; Z92.21 Personal history of antineoplastic chemotherapy
CPT/HCPCS: 36415; 80053; 83690; 96361; 96374; 96375; 99284; 81003; 83605; 83735; 84439; 84443; 85025; J0780; J1200; J2405

== ENCOUNTER 2024-09-08 12:45 | Emergency (ER) | payer OTHER, SELFPAY ==
[2024-09-08] VITALS (21 sets, daily range): BP systolic 77–199; BP diastolic 36–106; PULSE 79–95; RESP 16; TEMP 36.9; O2SAT 88–94
--- NOTE | 2024-09-08 13:00 | DI.CT_ITS ---
Exam(s) CT HEAD FACIAL WO EXAM: CT HEAD FACIAL WO CLINICAL HISTORY: left sided head and face pain, hx cancer, ?mets. TECHNIQUE: Imaging Protocol: Axial computed tomography images with coronal and sagittal reformatted images were created and reviewed COMPARISON: CT CT BRAIN NECK CTA from 06/07/[address] HEAD WO/W from 07/21/2024 FINDINGS: CT Head: Ventricles and Extra axial spaces: Normal in size and morphology for the patient's age. Hemorrhage: None. Cerebral parenchyma: No mass effect is identified. No findings to suggest an acute territorial infar ct are seen. No obvious metastatic disease is seen on this noncontrast examination. Midline shift: None. Brainstem/Cerebellum: Normal. Calvarium: There has been no change in appearance of the bones compared to the prior examination. No new lytic or sclerotic lesions are seen. Visualized Paranasal sinuses/Mastoids: Clear. Soft Tissues: Unremarkable. CT Face: Facial Bones: No definite fracture is noted in facial bones. Sinuses and Mastoids: Unremarkable. Globes, extraocular muscles, optic nerves and retrobulbar fat: Normal. Upper aerodigestive tract: Calcifications are again seen in the tonsils bilaterally. No focal fluid collection is seen to suggest an abscess. Mandible and bilateral temporomandibular joints: Normal. Soft tissues: Normal. IMPRESSION: 1. No acute intracranial process. If there is continued concern for intracranial metastatic disease, a postcontrast MRI should be considered for further evaluation. 2. No acute facial fracture. RADIATION DOSE DELIVERED: 1,598.2mGy.cm Total DLP DATA REPOSITORY: All CT scans at this facility are submitted to the National Radiology Data Registry (NRDR) Dose Index Registry (DIR) with the [employer] (A[employer]). RADIATION OPTIMIZATION: All CT scans at this facility use at least one of these dose optimization te chniques: automated exposure control; mA and/or kV adjustment per patient size (includes targeted exa ms where dose is matched to clinical indication); or iterative reconstruction.
--- NOTE | 2024-09-08 13:00 | DI.CT_ITS ---
Exam(s) CT ABDOMEN PELVIS W EXAM: CT ABDOMEN PELVIS W CLINICAL HISTORY: persistent n/v, ?obstruction. TECHNIQUE: Imaging Protocol: Axial computed tomography images with coronal and sagittal reformatted images were created and reviewed CONTRAST MATERIAL: Intravenous: Omnipaque-350 100cc Oral: None COMPARISON: CT CT BRAIN NECK CTA from 06/07/[address] NECK CHEST W from 02/24/[address] NECK CHEST W from 05/11/[address] NECK CHEST W from 08/31/[address] HEAD FACIAL WO from 09/08/2024 FINDINGS: VISUALIZED LUNG BASES: Compared to chest CT scan of 05/11/2024 there are increasing number and size o f metastatic appearing nodules in both lungs as well as some confluent infiltrate now evident in the anterior basal segment of the right lower lobe, not previously present on 05/11/2024 and increased in size from 08/31/2024. Compared to chest CT scan of 09/10/2024 the bilateral lung nodules in both vi sualized lungs appears unchanged. There are no pleural effusions. ABDOMEN: There is no ascites. LIVER: There is a subcapsular lesion in the superior aspect of the right hepatic lobe which appears t o been present on 08/31/2024 and 05/11/2024 as well as on the CT scan of 02/24/2024. Suspect that th is may be a benign hemangioma given that it was not FDG avid on the outside PET-CT scan of 09/20/2023 , realizing that this is 1 year ago. The only other finding in liver is a tiny 3 millimeter benign c yst more anteriorly in the right lobe. There are no dilated intrahepatic ducts. GALLBLADDER/BILIARY: The gallbladder is mildly distended. There is a single calcification in the gal lbladder fundus measuring 4-5 mm which appears to be imbedded in the some thickening of the gallbladd er wall at this level. The CBD is not dilated. PANCREAS: No evidence of pancreatic mass nor dilatation of the pancreatic duct. SPLEEN: Spleen is not enlarged. No obvious intrasplenic lesions. Splenic and portal veins are paten t. ADRENALS: There are no significant adrenal masses. KIDNEYS:No cysts evident. No solid renal masses. No calculi nor hydronephrosis.. ABDOMINAL AORTA: Abdominal aorta is moderately atherosclerotic but not enlarged. Common iliac arteri es are calcified but not enlarged. LYMPH NODES:There is no retroperitoneal nor paraaortic adenopathy. ABDOMINAL WALL: No evidence of significant anterior abdominal wall nor significant inguinal hernia. GI: There is no evidence of bowel obstruction, free air, nor abscess. PELVIS: GI: No evidence of appendicitis.No evidence of sigmoid diverticulitis. LYMPH NODES: There is no intrapelvic nor inguinal adenopathy. REPRODUCTIVE: Uterus appears somewhat bulky and there is an enhancing mass in the right-side of the u terus measuring approximately 3 by 2.4 cm. Possibly uterine fibroid or other pathology. Cannot deli neate the myometrium from the endometrium here. There are no abnormal adnexal masses nor free fluid in the pelvis. URINARY BLADDER: No calculi nor obvious masses evident OSSEOUS: Multilevel chronic degenerative disc disease with most prominent disc space narrowing at L2- 3 and L4-5 levels and there is mild degenerative anterolisthesis of L3 upon L4. In addition, there i s abnormal sclerotic density in the right-side of the L4 vertebral body, possibly metastatic. This a ppears to have slightly increased in size from 09/20/2023. No other sclerotic-blastic appearing bone lesions evident. There are multiple smaller very dense bone densities within the ischial tuberosities which are probab ly benign bone islands given their density. There are no prior abdominal/pelvic CT scans in our PACS for comparison. IMPRESSION: 1. Compared to CT scan of 08/31/2024 the previously described multiple pulmonary nodules suspicious f or metastatic disease are unchanged. However, there is also now new infiltrate in the anterior basal segment of the right lower lobe which was not evident on 08/31/2024. There are no pleural effusions . 2. Subcapsular lesion in the superior aspect of the right hepatic lobe is noted and is probably uncha nged from prior studies listed above realizing differences in technique when compared to prior chest CT scans. This may represent a benign hemangioma and can be further studied with hemangioma protocol contrast infused MRI. 3. Cholelithiasis. There is a 4-5 mm gallstone which appears imbedded in some gallbladder wall thick ening at the level the gallbladder fundus. Gallbladder is mildly distended. There are no radiopaque calculi in the region of the neck. CBD is not dilated. 4. Somewhat abnormal bulky appearing uterus difficult to differentiate myometrium from endometrium. There is an enhancing 3 x 2.4 cm abnormality in the right-side of the uterus which may be a fibroid b ut cannot exclude other pathology. Recommend follow-up ultrasound of the uterus. There are no abnor mal adnexal masses. 5. There is a sclerotic lesion in the right-side of the L4 vertebral body which may be metastatic gi juan daniel the findings in the lungs plus the fact that it has slightly increased in size from prior CT scan of 09/20/2023. Report called by myself to ER physician 09/08/2024 at 2:40 p.m. RADIATION DOSE DELIVERED: 1,009.63mGy.cm Total DLP DATA REPOSITORY: All CT scans at this facility are submitted to the National Radiology Data Registry (NRDR) Dose Index Registry (DIR) with the [employer] (ACR). RADIATION OPTIMIZATION: All CT scans at this facility use at least one of these dose optimization te chniques: automated exposure control; mA and/or kV adjustment per patient size (includes targeted exa ms where dose is matched to clinical indication); or iterative reconstruction.
--- NOTE | 2024-09-08 13:08 | ED.GENADUL_ITS ---
Discharge Plan Disposition Patient Disposition: Home Condition: Stable Discharge Details Clinical Impression: Nausea & vomiting, Headache, Facial pain Primary Care Provider: Apple Hameed ED Provider: Otto Nicole [place] Meds and New Rx's Prescriptions: New prochlorperazine maleate [Compazine] 10 mg tablet 10 mg PO Q6H PRN (Reason: nausea and vomiting) Qty: 30 0RF Continued lenvatinib 8 mg/day (4 mg x 2) capsule 24 mg PO DAILY fentanyl 25 mcg/hr patch 72 hour 12 mcg transdermal Q72H hydromorphone 2 mg tablet 2 - 6 mg PO .q2-4h MDD 10 PRN (Reason: pain) Qty: 60 0RF gabapentin 300 mg capsule 300 mg PO TID Qty: 90 0RF Rx Instructions: 1 tab in the afternoon, 2 tabs at bedtime ondansetron 4 mg tablet,disintegrating 4 mg PO Q8H Qty: 30 3RF levothyroxine 200 mcg tablet 200 mcg PO DAILY Rx Instructions: total daily dose of 350mcg levothyroxine 150 mcg tablet 175 mcg PO DAILY Patient Comments: TAKE 1 TABLET BY MOUTH ONCE DAILY IN ADDITION TO 200MCG FOR A TOTAL OF 350MCG Rx Instructions: total daily dose 350mcg benzonatate 200 mg capsule 200 mg PO BID PRN (Reason: cough) Qty: 60 3RF Rx Instructions: for cough acetaminophen 500 mg tablet 1,000 mg PO Q6H PRN prochlorperazine maleate [Compazine] 10 mg tablet 10 mg PO Q6H PRN Rx Instructions: for nausea sennosides [senna] 8.8 mg/5 mL syrup 5 ml PO BID PRN (Reason: constipation) Qty: 200 0RF prednisone 10 mg tablet 10 mg PO DAILY Qty: 30 3RF dexamethasone 4 mg tablet See Rx Instructions PO DAILY Qty: 30 0RF Rx Instructions: 8mg orally daily for 5 days then continue 4mg daily fentanyl 50 mcg/hr patch 72 hour 1 patch transdermal Q72H MDD 100mcg Qty: 10 0RF hydromorphone 4 mg tablet 8 - 10 mg PO Q4H MDD 15 tabs PRN (Reason: pain) Qty: 60 0RF Rx Instructions: dose increased losartan 50 mg tablet 50 mg PO DAILY Qty: 90 0RF alprazolam 0.5 mg tablet 0.5 mg PO PRN PRN Patient Comments: TAKE 1 TABLET BY MOUTH NEEDED . TAKE 1 PILL 1/2 HOUR PRIOR TO RADIOTHERAPY NEEDED codeine-guaifenesin 10-100 mg/5 mL liquid 5 ml PO PRN PRN Patient Comments: GIVE 5ML BY MOUTH ONCE DAILY ergocalciferol (vitamin D2) 1,250 mcg (50,000 unit) capsule 5,000 mcg PO .Qweekly Patient Comments: TAKE ONE CAPSULE BY MOUTH ONCE WEEKLY hydrocodone-acetaminophen 5-325 mg tablet 1 tab PO Q6H PRN Patient Comments: TAKE ONE TABLET BY MOUTH EVERY 4 HOURS NEEDED FOR PAIN MAXIMUM DAILY DOSE = 6 TABLETS hydromorphone 1 mg/mL liquid 1 mg PO Q4H PRN Patient Comments: TAKE 1ML BY MOUTH AT BEDTIME NEEDED FOR PAIN +MAX 1ML PER DAY+ ibuprofen [IBU] 600 mg tablet 600 mg PO Q6H Discharge Instructions Additional Instructions: Your blood work and cat scan do not show any emergent findings. You do have evidence of metastases for which if you want further workup for these you can follow-up with your oncologist. Look he likely had fibroids of uterus but you can also have a follow-up ultrasound if you choose to have these worked up further. Follow-up with out of care and also your oncologist If you feel more ill, have severe pain or new symptoms such as severe difficulty breathing return to the emergency department for reevaluation HPI General Mode of arrival: ambulatory . Date/Time Provider Initiated Documentation: 09/08/24 12:46 . Limitations to Documentation: no limitations . History of Present Illness 64 year old F presents to the emergency department with the chief complaint of n/v, described as moderate, Patient started experiencing this week(s) (1) and it has been constant. No relieving factors improve symptom(s), No exacerbating factors reported . Patient notes denies chest pain, fever/chills and shortness of breath. Patient did receive the following treatments prior to arrival, none Related Data Home Medications ?Medication ?Instructions ?Recorded ?Confirmed levothyroxine 200 mcg tablet 200 mcg PO DAILY 08/03/22 09/08/24 acetaminophen 500 mg tablet 1,000 mg PO Q6H PRN 12/06/23 09/08/24 prochlorperazine maleate 10 mg 10 mg PO Q6H PRN 12/06/23 09/08/24 tablet (Compazine) levothyroxine 150 mcg tablet 175 mcg PO DAILY 01/02/24 09/08/24 sennosides 8.8 mg/5 mL oral syrup 5 ml PO BID PRN constipation #200 03/09/24 09/08/24 (senna) mL benzonatate 200 mg capsule 200 mg PO BID PRN cough #60 caps 06/11/24 09/08/24 lenvatinib 8 mg/day (4 mg x 2) 24 mg PO DAILY 08/10/24 09/08/24 capsule prednisone 10 mg tablet 10 mg PO DAILY #30 tabs 08/17/24 09/08/24 fentanyl 25 mcg/hr transdermal 12 mcg transdermal Q72H 08/27/24 09/08/24 patch gabapentin 300 mg capsule 300 mg PO TID #90 caps 08/27/24 09/08/24 hydromorphone 2 mg tablet 2 - 6 mg (1 - 3 x 2 mg) PO .q2-4h 08/27/24 09/08/24 PRN pain #60 tabs ondansetron 4 mg disintegrating 4 mg PO Q8H #30 tabs 08/27/24 09/08/24 tablet dexamethasone 4 mg tablet See Rx Instructions PO DAILY #30 08/31/24 09/08/24 tabs fentanyl 50 mcg/hr transdermal 1 patch transdermal Q72H #10 ea 08/31/24 09/08/24 patch hydromorphone 4 mg tablet 8 - 10 mg (2 - 2.5 x 4 mg) PO Q4H 09/03/24 09/08/24 PRN pain #60 tabs alprazolam 0.5 mg tablet 0.5 mg PO PRN PRN 09/07/24 09/08/24 codeine 10 mg-guaifenesin 100 mg/5 5 ml PO PRN PRN 09/07/24 09/08/24 mL oral liquid ergocalciferol (vitamin D2) 1,250 5,000 mcg PO .Qweekly 09/07/24 09/08/24 mcg (50,000 unit) capsule hydrocodone 5 mg-acetaminophen 325 1 tab PO Q6H PRN 09/07/24 09/08/24 mg tablet hydromorphone 1 mg/mL oral liquid 1 mg PO Q4H PRN 09/07/24 09/08/24 ibuprofen 600 mg tablet (IBU) 600 mg PO Q6H 09/07/24 09/08/24 losartan 50 mg tablet 50 mg PO DAILY #90 tabs 09/07/24 09/08/24 prochlorperazine maleate 10 mg 10 mg PO Q6H PRN nausea and 09/08/24 tablet (Compazine) vomiting #30 tabs Previous Rx's ?Medication ?Instructions ?Recorded sennosides 8.8 mg/5 mL oral syrup 5 ml PO BID PRN constipation #200 03/09/24 (senna) mL benzonatate 200 mg capsule 200 mg PO BID PRN cough #60 caps 06/11/24 prednisone 10 mg tablet 10 mg PO DAILY #30 tabs 08/17/24 gabapentin 300 mg capsule 300 mg PO TID #90 caps 08/27/24 hydromorphone 2 mg tablet 2 - 6 mg (1 - 3 x 2 mg) PO .q2-4h 08/27/24 PRN pain #60 tabs ondansetron 4 mg disintegrating 4 mg PO Q8H #30 tabs 08/27/24 tablet dexamethasone 4 mg tablet See Rx Instructions PO DAILY #30 08/31/24 tabs fentanyl 50 mcg/hr transdermal 1 patch transdermal Q72H #10 ea 08/31/24 patch hydromorphone 4 mg tablet 8 - 10 mg (2 - 2.5 x 4 mg) PO Q4H 09/03/24 PRN pain #60 tabs losartan 50 mg tablet 50 mg PO DAILY #90 tabs 09/07/24 prochlorperazine maleate 10 mg 10 mg PO Q6H PRN nausea and 09/08/24 tablet (Compazine) vomiting #30 tabs Allergies Allergy/AdvReac Type Severity Reaction Status Date / Time No Known Allergies Allergy Verified 09/08/24 12:57 General Stated Complaint: Nausea/Vomit/Diar RAY: 3 Review of Systems All systems reviewed & are unremarkable except as noted in HPI and below Constitutional Constitutional: Denies chills, Denies fever(s) and Denies weakness Cardiovascular Cardiovascular: Denies chest pain and Denies dyspnea Respiratory Respiratory: Denies cough and Denies dyspnea Gastrointestinal Gastrointestinal: Denies abdominal pain, Reports nausea and Reports vomiting Neurologic Neurologic: Denies weakness Exam Const General: no acute distress Orientation: alert [facility] Head: normal to inspection Ears: external ears normal General nose exam: external nose normal Mouth: moist mucous membranes Eyes General: appearance normal, both eyes and all related structures Neck Neck: normal visual inspection, full ROM, lymphadenopathy noted and meningismus present Resp Effort & Inspection: normal respiratory effort and able to speak in complete sentences Cardio Rate: regular rate GI Palpation: soft and nontender Skin General skin exam: no rashes or lesions noted Neuro General: patient alert and patient oriented x3 Cranial Nerves: CN's II-XI intact bilaterally Extrem General: normal to inspection Psych Mental Status: mental status grossly normal Course Vital Signs Vital signs: Vital Signs Temperature 36.9 C 09/08/24 12:50 Pulse 92 H 09/08/24 12:50 Respiratory Rate 16 09/08/24 12:50 Blood Pressure 126/91 H 09/08/24 12:50 Pulse Oximetry 93 09/08/24 12:50 Temperature 36.9 C 09/08/24 12:50 Temperature Source Oral 09/08/24 12:50 Pulse 92 H 09/08/24 12:50 Respiratory Rate 16 09/08/24 12:50 Blood Pressure 126/91 H 09/08/24 12:50 Blood Pressure Position Supine 09/08/24 12:50 Pulse Oximetry 93 09/08/24 12:50 Oxygen Delivery Method Room Air 09/08/24 12:50 Oxygen Flow Rate 0 09/08/24 12:50 Pain Level 8 09/08/24 12:50 Medical Decision Making 64-year-old female with a history of thyroid cancer who stopped taking oral chemotherapeutic agents over a week ago due to side effects has continued nausea vomiting. She was seen yesterday and had lab work and was going to have imaging of her head and abdomen and pelvis but left before imaging was done. She has continued nausea and vomiting and cannot keep down so came here. She denies any chest pain, fevers, difficulty breathing. She notes that she has intermittent left-sided headache and facial pain. She has no significant swelling of her face or neck. She has no restricted neck movements. Pupils are equal and reactive to light, she has intact cranial nerves II through XII. No meningismus. Soft nontender abdomen. Given persistent nausea vomiting which I suspect could be medication induced will check CT head and face due to her headaches to evaluate for metastases, will also obtain CT abdomen pelvis to exclude obstruction and check labs. She has no chest pain or chest pressure so doubt ACS. Patient feels better after Compazine. Labs unremarkable, patient CT head and face shows no acute findings, CT abdomen pelvis also shows no significant acute findings. She does have a gallstone but she has no significant leukocytosis or elevation in her LFTs from baseline. No right upper quadrant tenderness abdominal cholecystitis. She has other nonemergent findings including nodules and infiltrates in her lungs, she denies any fevers or cough so I suspect these are evidence of metastases which she says she has been known about. Also has l ytic lesions in her vertebral column, also has likely fibroids in her uterus but will need follow-up ultrasound if she wants further workup. I discussed all these findings with her and at this time she is not really seem interested in further testing or workup for these findings. She will follow-up with her palliative care provider and oncologist, return precautions given Differential Diagnosis Differential Diagnosis: Cancer related pain, nausea vomiting due to medications, intracranial mass, Medical Records Medical records reviewed: Yes I reviewed the patient's medical records. Lab Data Lab results reviewed: Yes I reviewed the patient's lab results. Quality:SDOH Health Related Social Needs: No Data to Display PFSH All Active Problems (Updated 09/08/24 @ 15:01 by Otto Nicole MD) Facial pain (Acute) Headache (Acute) Nausea & vomiting (Acute) Nausea (Acute) Fatigue (Acute) Impaired instrumental activities of daily living (Acute) Dysphagia, pharyngeal (Acute) ACP (advance care planning) (Acute) Dizziness (Acute) Palliative care status (Acute) Hypothyroidism (Chronic) Vitamin D deficiency (Acute) Nausea with vomiting, unspecified (Acute) Neoplasm related pain (Acute) Secondary malignant neoplasm of both lungs (Acute) Thyroid cancer (Acute) Secondary malignant neoplasm of bone (Acute) Hypercalcemia (Acute) Lymphadenopathy of left cervical region (Acute) Internal derangement of right knee (Acute) Hyperlipidemia (Chronic) Hypertension (Chronic) Hypothyroidism associated with surgical procedure (Acute 03/28/18) Obesity (Chronic) Prediabetes (Chronic 03/28/18) History of malignant neoplasm of thyroid (Acute 05/30/16) Followed by endocrinology 04/05; papillary thyroid cancer. Hypoalbuminemia (Acute) Medical History Constipation History of tobacco use History of thyroid cancer followed by endocrinology 04/05 Family history of diabetes mellitus (03/28/18) Family history of coronary artery disease (04/14/18) sister with [place] at age 48 and mother with CAD at age 65 Surgical History H/O neck dissection S/P total thyroidectomy (~1994) Family History Mother , AGE 73 Diabetes Depression Heart disease Stroke Dementia Sister Substance abuse Diabetes Essential hypertension Depression Heart disease Brother Diabetes Essential hypertension Depression Sister Substance abuse Diabetes Depression Asthma Alcohol abuse Brother Substance abuse Diabetes Depression Colon cancer Heart disease CABG age 66 Maternal Grandmother Diabetes Stroke Father , truck accident No problems noted. 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[employer] Pets and animals: Yes Pets and animals: cat(s) Sexually active: Yes Do you think of yourself as: lesbian/ontiveros/homosexual Current gender identity: female What is your relationship status?: Panel score (0-1 are the most socially isolated patients): 1 Frequency: does not exercise Alena/Tenriism: No preference Special alena needs: No Seatbelt use: always Working smoke detector in home: Yes Carbon monox detector in home: Yes Firearms in home: Yes Firearms unloaded and locked: Yes Do you feel safe at home: Yes Victim of physical abuse: No Victim of emotional abuse: No Victim of sexual abuse: No Additional Social history: Strongly enjoys her work, grandchildren.
[2024-09-08] MEDS: Prochlorperazine 10 MG/2 ML VIAL IVP (13:22)
[2024-09-08 13:43] LABS: Abs Immature Grans 0.04 10^3/uL (0.0-0.06); Absolute Basophil Count 0.02 10^3/uL (0.0-0.2); Absolute Eosinophil Count 0.08 10^3/uL (0.0-0.7); Absolute Lymphocyte Count 0.38 10^3/uL (1.2-3.4); Absolute Monocyte Count 0.73 10^3/uL (0.1-0.8); Absolute Neutrophil Count 8.63 10^3/uL (1.2-6.7); Basophils % 0.2 %; Eosinophils % 0.8 %; HCT 46.9 % (36.0-46.0); HGB 15.4 g/dL (11.2-15.7); Immature Grans % 0.4 %; Lymphocytes % 3.8 %; MCH 27.9 pg (27.0-33.0); MCHC 32.8 % (32.0-36.0); MCV 85 fL (80-95); MPV 9.7 fL (8.0-11.0); Monocytes % 7.4 %; Neutrophils % 87.4 %; Platelet Count 309 10^3/uL (130-400); RBC 5.52 10^6/uL (3.93-5.22); RDW 14.1 % (11.7-14.6); RDW-SD 43.7 fL; WBC 9.88 10^3/uL (4.4-10.8)
[2024-09-08 14:06] LABS: ALT 16 U/L (14-59); AST 9 U/L (15-37); Albumin 3.5 g/dL (3.4-5.0); Alkaline Phosphatase 85 U/L (46-116); Anion Gap 8.5 mmol/L (3-11); BUN 12 mg/dL (7-18); Bilirubin, Total 1.29 mg/dL (0.2-1.0); CO2 28.5 mmol/L (21.0-32.0); CREATININE 0.8 mg/dL (0.55-1.02); Calcium 9.5 mg/dL (8.5-10.1); Chloride 96 mmol/L (98-107); Estimated GFR 82.23 (mL/min/1.73m2); Glucose 158 mg/dL (74-106); Magnesium 2.1 mg/dL (1.8-2.4); Potassium 3.5 mmol/L (3.5-5.1); Sodium 133 mmol/L (136-145); TSH (W/Ref FT4) 0.26 uIU/mL (0.36-3.74); Total Protein 7.4 g/dL (6.4-8.2)
[2024-09-08] MEDS: Omnipaque 350 MG/ML 100 ML BTL IJ (14:12)
[2024-09-08] MEDS: Normal Saline - Diluent 50 ML VIAL IJ (14:13)
[2024-09-08 14:16] LABS: Bilirubin Negative (Negative); Blood Negative (Negative); Clarity Clear (Clear); Glucose Negative (Negative); Ketones 40 mg/dL (Negative); Leukocyte Esterase Negative (Negative); Nitrite Negative (Negative); Specific Gravity 1.015 (1.005-1.025); Urobilinogen 0.2 mg/dL (Up to 0.2)
[2024-09-08 14:24] LABS: Bacteria Moderate HPF (Negative); C & S Indicated? No; Casts Negative LPF (Negative); Crystals Negative HPF (Negative); Epithelial Cells Moderate HPF (Negative); Mucus Moderate (Negative); RBC 0-2 HPF (0-2); WBC 0-2 HPF (0-5)
== END 2024-09-08 15:19 | disposition home or self-care (01) ==
PROVIDERS: Emergency Provider Emergency Medicine; PCP Family Medicine
DX: R11.2 Nausea with vomiting, unspecified (principal); R51.9 Headache, unspecified; R91.8 Other nonspecific abnormal finding of lung field; C73 Malignant neoplasm of thyroid gland; I10 Essential (primary) hypertension; E78.5 Hyperlipidemia, unspecified; Z92.21 Personal history of antineoplastic chemotherapy; Z87.891 Personal history of nicotine dependence
CPT/HCPCS: 36415; 80053; 96374; 99285; 70450; 70486; 74177; 81003; 81015; 83735; 84443; 85025; J0780; J3490